=== PATIENT | female | born 1940 | race Caucasian/White ===

== ENCOUNTER 2022-02-13 06:32 | Inpatient (IN) | payer MEDICARE, SELFPAY ==
[2022-02-13] VITALS (22 sets, daily range): BP systolic 116–142; BP diastolic 64–97; PULSE 71–112; RESP 18–42; TEMP 36.3–37; O2SAT 93–100; BMI 23.3
--- NOTE | ~2022-02-13 | XR_ITS ---
EXAMINATION: XR chest 1V portable INDICATION: Shortness of breath TECHNIQUE: Portable AP chest at 0740 hours COMPARISON: None available FINDINGS: There are airspace opacities in the left midlung zone. No pleural effusion or pneumothorax. Cardiomegaly is noted. IMPRESSION: 1. Airspace opacities of the left midlung zone, consistent with atelectasis versus pneumonia. Reviewed, dictated and finalized at location A. SEAT FITTER IMPRESSION: 1. Airspace opacities of the left midlung zone, consistent with atelectasis marci caroline pneumonia.
--- NOTE | ~2022-02-13 | CT_ITS ---
EXAMINATION: CTA chest PE protocol DATE: 02/13/2022 09:50 INDICATION: Shortness of breath TECHNIQUE: Computed tomography angiography (CTA) of the chest was performed with 100 mL Omnipaque-350 intravenous contrast timed to evaluate the pulmonary arteries. Coronal maximum intensity projection 3D-reconstructions were created by the technologist. The dose-length product (DLP) was 469.62 mGy-cm. Automated exposure control and iterative reconstruction technique were employed. COMPARISON: None. FINDINGS: The pulmonary arteries are well-opacified. Respiratory motion artifact limits evaluation of subsegmental peripheral arteries. No central pulmonary embolism is identified. There is diffuse smoo th interlobular septal thickening in the lungs. There are small pleural effusions. No pneumothorax is identified. Cardiomegaly is noted. There is a 7 mm nodule in the left upper lobe. There is a 1.7 x 0 .8 cm nodule in the left lower lobe. There is a 5.7 x 2.5 cm masslike opacity of the left upper lobe. There is a 1.3 cm nodule in the left lower lobe. There is aorticopulmonary window lymphadenopathy. T here is severe thoracic and cervical spondylosis. There is a partially imaged fusiform abdominal aort ic aneurysm with a small amount of hyperattenuating material visualized which could reflect intramura l hematoma. IMPRESSION: 1. No definite pulmonary embolus identified, sensitivity limited by respiratory motion artifact. 2. Multiple left lung nodules and masslike opacity of the left upper lobe. Findings could be infectio us/inflammatory versus malignancy. Recommend CT-guided biopsy or short-term CT follow-up. 3. Aorticopulmonary window lymphadenopathy, reactive versus metastatic. 4. Partially imaged fusiform abdominal aortic aneurysm with probable intramural hematoma. Comparison with any available prior imaging is recommended. Reviewed, dictated and finalized at location A. COLOR TESTER IMPRESSION: 1. No definite pulmonary embolus identified, sensitivity limited by respiratory motion artifact. 2. Multiple left lung nodules and masslike opacity of the left upper lobe. Find ings could be infectious/inflammatory versus malignancy. Recommend CT-guided bi opsy or short-term CT follow-up. 3. Aorticopulmonary window lymphadenopathy, reactive versus metastatic. 4. Partially imaged fusiform abdominal aortic aneurysm with probable intramural hematoma. Comparison with any available prior imaging is recommended.
--- NOTE | 2022-02-13 06:44 | ECG_ITS ---
Measurements Intervals [place] Rate: 111 P: 46 [place]: 146 QRS: 89 QRSD: 132 T: 58 QT: 365 QTc: 497 Interpretive Statements SINUS TACHYCARDIA LEFT BUNDLE BRANCH BLOCK BASELINE ARTIFACT- I, II, III, AVR, AVL, AVF ABNORMAL ECG NO PREVIOUS ECG AVAILABLE FOR COMPARISON Electronically Signed On 02-13-2022 7:15:22 PARTS REMOVER by Ascencion Gonzalez D.O.
[2022-02-13] MEDS: methylPREDNISolone SOD SUCC 125 MG VIAL IV PUSH (06:52)
[2022-02-13] MEDS: IPRATROPIUM BR 0.02% INH SOLN 0.5 MG/2.5 ML VIAL INHALATION (06:52)
[2022-02-13] MEDS: ALBUTEROL SULFATE NEB 2.5 MG/3 ML INH 5 MG INHALATION (06:53)
[2022-02-13 07:01] LABS: Basophils Absolute Auto 0.1 K/mm3 (0.0-0.1); Basophils Percent Auto 0.5 % (0.2-1.2); Eosinophils Absolute Auto 0.1 K/mm3 (0-0.3); Eosinophils Percent Auto 1.5 % (0-4.4); Hematocrit 39.1 % (37.0-47.0); Hemoglobin 12.3 g/dL (12.0-15.0); Immature Granulocyte Absolute 0.05 K/mm3 (0.00-0.031); Immature Granulocyte Percent A 0.5 % (0-0.5); Lymphocytes Absolute Auto 1.82 K/mm3 (0.9-3.2); Lymphocytes Percent Auto 19.2 % (18.3-44.2); Mean Corpuscular HGB Conc 31.5 g/dl (32-36); Mean Corpuscular Hemoglobin 30.1 pg (26-34); Mean Corpuscular Volume 95.8 fl (80-100); Mean Platelet Volume 9.2 fl (7.4-10.4); Monocytes Absolute Auto 0.5 K/mm3 (0.1-0.6); Monocytes Percent Auto 5.4 % (2.6-8.5); Neutrophils Absolute Auto 6.9 K/mm3 (1.3-6.7); Neutrophils Percent Auto 72.9 % (45.5-73.1); Platelet Count Result 343 k/mm3 (150-375); Red Blood Count 4.08 M/mm3 (4.2-5.4); White Blood Count 9.5 K/mm3 (4.5-10.0)
[2022-02-13 07:04] LABS: Alveolar/Arterial O2 Gradient 88.7 mmHg; Base Excess ABG 0.2 mEq/l (+/-2.0); Fractional Inspired Oxygen 35 %; Oxygen Content ABG 18.1 %vol (16.0-22.0); Oxygen Saturation ABG 97.7 % (95.0-100.0); Oxyhemoglobin 96.7 % THb (90.0-100.0); PCO2 ABG 46.8 mmHg (35.0-45.0); PO2 ABG 106.4 mmHg (80.0-100.0); PO2 FiO2 Ratio Arterial Blood 3.04 %; Total Hemoglobin 13.2 g/dL (12.0-18.0); pH ABG 7.363 (7.350-7.450)
[2022-02-13 07:05] LABS: Device NON-INVASIVE VENT; Modified Allen's Test Pass; Site Drawn RIGHT RADIAL
[2022-02-13 07:06] LABS: Non-Invasive Expiratory Pressure 7 CMH2O; Non-Invasive Inspiratory Pressure 14 CMH2O; Non-Invasive Vent Rate 14 /MIN
[2022-02-13 07:17] LABS: Alanine Aminotransferase 17 U/L (6-35); Alkaline Phosphatase 74 U/L (38-126); Anion Gap 13 mmol/L (8-16); Aspartate Amino Transferase 40 U/L (14-36); Bilirubin,Total 0.8 mg/dL (0.2-1.3); Blood Urea Nitrogen 31 mg/dL (7-17); Calcium 8.2 mg/dL (8.4-10.2); Carbon Dioxide 25 mmol/L (22-30); Chloride 101 mmol/L (98-107); Estimated Glomerular Filt Rate 36; Glucose 201 mg/dL (65-110); Sodium 139 mmol/L (137-145)
--- NOTE | 2022-02-13 07:24 | ED.GENADULT ---
HPI - General Adult General Chief complaint: Shortness of Breath/Dyspnea <Rafael Collins MD - Last Filed: 02/18/22 12:55> Stated complaint: resp distress - 15l nrb <Rafael Collins MD - Last Filed: 02/18/22 12:55> Time Seen by Provider: 02/13/22 06:44 <Rafael Collins MD - Last Filed: 02/18/22 12:55> History of Present Illness HPI narrative: 81-year-old female presenting to the emergency department for evaluation of increased difficulty breathing. Patient states she woke up with increased shortness of breath and called EMS. On arrival EMS found the patient saturating at 84% on room air. Patient was placed on oxygen but still had difficulty maintaining her sats. Upon arrival to the emergency department patient was in respiratory distress and was placed on BiPAP. Patient did respond well to the BiPAP. Patient does have history of COPD but is not on oxygen at home. <Rafael Collins MD - Last Filed: 02/18/22 12:55> Related Data Home medications: Home Medications Medication Instructions Recorded Confirmed aspirin 81 mg chewable tablet 81 mg PO DAILY 02/13/22 02/13/22 carvedilol 25 mg tablet 25 mg PO Q12H 02/13/22 02/13/22 furosemide 20 mg tablet 20 mg PO DAILY 02/13/22 02/13/22 isosorbide mononitrate 60 mg 60 mg PO DAILY 02/13/22 02/13/22 tablet,extended release 24 hr levothyroxine 75 mcg tablet 75 mcg PO DAILY 02/13/22 02/13/22 ramipril 10 mg capsule 10 mg PO DAILY 02/13/22 02/13/22 spironolactone 25 mg tablet 12.5 mg PO DAILY 02/13/22 02/13/22 <Rafael Collins MD - Last Filed: 02/18/22 12:55> Allergies/adverse reactions: Allergies Allergy/AdvReac Type Severity Reaction Status Date / Time No Known Allergies Allergy Verified 02/13/22 08:58 <Rafael Collins MD - Last Filed: 02/18/22 12:55> Review of Systems Review of Systems: CONSTITUTIONAL: See HPI EYES: Denies visual changes, redness, or discharge. ENT: Denies rhinorrhea, congestion, sore throat, or otalgia. CARDIOVASCULAR: Denies chest pain, palpitations, or edema. RESPIRATORY: Shortness of breath GASTROINTESTINAL: Denies abdominal pain, nausea, vomiting, or diarrhea. GENITOURINARY: Denies dysuria or hematuria. SKIN: Denies rash or itching. MUSCULOSKELETAL: Denies back pain, joint pain, or myalgia. NEUROLOGIC: Denies headache, numbness, or weakness. <Rafael Collins MD - Last Filed: 02/18/22 12:55> PMFSH Past Medical History Medical History: Medical History (Updated 02/15/22 @ 08:43 by Misty Lomas APN-C) Aortic stenosis CHF (congestive heart failure) COPD (chronic obstructive pulmonary disease) Hypertension Lung nodule Mitral regurgitation <Rafael Collins MD - Last Filed: 02/18/22 12:55> Family History Family History: Family History Father Acute myocardial infarction Mother Alzheimer disease <Rafael Collins MD - Last Filed: 02/18/22 12:55> Social History Social History: Social History Smoking status: Never smoker Alcohol intake: never Substance use: never Lack of Transportation: No Lack of Food: Never True Current Housing: I Have Housing Concerned About Future Housing: No Difficulty Paying Gas/Electric Bills: No Difficulty Paying for Meds: No Currently Unemployed: No Education: High School Diploma/GED Difficulty w/ Childcare or Family Care: No Spiritual care concerns: No <Rafael Collins MD - Last Filed: 02/18/22 12:55> Exam Narrative: APPEARANCE: Well appearing, no pain, no distress, well-nourished. HEAD: normocephalic, atraumatic. EYES: PERRLA/EOMI, conjunctivae clear. NOSE: Normal no drainage NECK: Supple. No adenopathy, no masses. RESPIRATORY: Tachypnea, rhonchi in lower lung toro CARDIOVASCULAR: Tachycardia ABDOMINAL: Soft, nontender, nondistended, normal bowel sounds MUSCULOSKELETAL: Moves all extremities. Strength
[2022-02-13 07:37] LABS: Influenza A QL RT-PCR Negative (Negative); Influenza B QL RT-PCR Negative (Negative); SARS-CoV-2 RNA PCR Negative
[2022-02-13 08:54] LABS: Appearance Urine Slightly Cloudy (Clear); Bilirubin Urine Negative (Negative); Blood Urine 1+ (Negative); Color Urine Yellow (Yellow); Glucose Urine UA Negative (Negative); Ketones Urine Negative (Negative); Leukocyte Esterase Ur 3+ LEU/UL (Negative); Nitrate Urine Negative (Negative); Protein Urine 2+ mg/dL (Negative); Specific Grav Ur 1.015 (1.001-1.035); Urobilinogen Urine 0.2 mg/dL (<2.0); pH Urine 8.5 (5.0-9.0)
[2022-02-13 09:01] LABS: Bacteria Urine Trace /hpf; Mucus Urine Rare /lpf; Transitional Epi Cells Urine Rare /hpf (None Seen); WBC Clumps Urine Present /HPF; WBC Urine >75 /hpf
[2022-02-13 09:03] LABS: Add Urine Microscopic? YES
[2022-02-13 09:21] LABS: NT Pro B Type Natriuretic Pept 26600 pg/mL (5-100); Troponin I 0.412 ng/mL (0.000-0.034)
--- NOTE | 2022-02-13 09:35 | PC.NURSE ---
PT TO CT
--- NOTE | 2022-02-13 09:59 | PM.IMHP ---
H&P: [facility] History of Present Illness Date/Time: 02/13/22 09:59 Chief Complaint: sob, le edema Narrative: 81-year-old female with past medical history significant for heart failure, hypothyroidism, hypertension is presenting with shortness of breath and lower extremity edema as well as abdominal swelling concerning for heart failure exacerbation. Patient states that she takes her weight regularly and gained several lb. She called her director of retention and begin taking extra doses of Lasix to see if this would alleviate her symptoms. However, over the last few days, she noted that she did not have significant urine output like she normally does when she takes extra Lasix. Shortness of breath became worse, she developed orthopnea, lower extremity edema and abdominal distension concerning for fluid retention. Therefore, she presented to the ER for care. She denies chest pain. No recent travel or sick contacts. No nausea, vomiting or diarrhea. No fevers or chills. In the ER, she required BiPAP support to keep her pulse ox above 90%. She has since been weaned to 4 L nasal cannula. She is on room air at home. Chest x-ray showed opacities consistent with atelectasis versus pneumonia. Chest CTA was done as well that did not show definitive PE, it did show lung nodules and masslike opacity of left upper lobe concerning for malignancy as well as associated lymphadenopathy. There were also noted bilateral pleural effusions. Finally, there is a partially imaged abdominal aortic aneurysm with intramural hematoma noted. Records from her director of retention and PCP are currently being requested and are pending. Review of Systems Review of Systems: 12 point review of systems was assessed and was negative except as noted in the HPI [facility] Past Medical History Medical History (Updated 02/14/22 @ 18:09 by Swetha Mccain DO) Aortic stenosis CHF (congestive heart failure) COPD (chronic obstructive pulmonary disease) Hypertension Lung nodule Mitral regurgitation Family History Family History Father Acute myocardial infarction Mother Alzheimer disease Social History Social History Smoking status: Never smoker Alcohol intake: never Substance use: never Lack of Transportation: No Lack of Food: Never True Current Housing: I Have Housing Concerned About Future Housing: No Difficulty Paying Gas/Electric Bills: No Difficulty Paying for Meds: No Currently Unemployed: No Education: High School Diploma/GED Difficulty w/ Childcare or Family Care: No Spiritual care concerns: No Meds Home Medications and Allergies Home Medications Medication Instructions Recorded Confirmed Type aspirin 81 mg chewable tablet 81 mg PO DAILY 02/13/22 02/13/22 History carvedilol 25 mg tablet 25 mg PO Q12H 02/13/22 02/13/22 History furosemide 20 mg tablet 20 mg PO DAILY 02/13/22 02/13/22 History isosorbide mononitrate 60 mg 60 mg PO DAILY 02/13/22 02/13/22 History tablet,extended release 24 hr levothyroxine 75 mcg tablet 75 mcg PO DAILY 02/13/22 02/13/22 History ramipril 10 mg capsule 10 mg PO DAILY 02/13/22 02/13/22 History spironolactone 25 mg tablet 12.5 mg PO DAILY 02/13/22 02/13/22 History Allergies Allergy/AdvReac Type Severity Reaction Status Date / Time No Known Allergies Allergy Verified 02/13/22 08:58 Vital Signs Vital Signs - 24 hr 02/13/22 06:30 02/13/22 06:41 02/13/22 06:53 Temperature 97.4 F L Pulse Rate 111 H 105 H Respiratory Rate 41 H 42 H Blood Pressure 117/64 Pulse Oximetry 100 Oxygen Delivery Non-Rebreather Mask BiPAP Oxygen Flow Rate 15 02/13/22 06:45 02/13/22 07:11 02/13/22 08:12 Temperature Pulse Rate 93 Respiratory Rate 38 H 20 Blood Pressure Pulse Oximetry Oxygen Delivery BiPAP BiPAP Oxygen Flow Rate 02/13/22 06:45 02/13/22 06:46 02/13/22 0
[2022-02-13] MEDS: ONDANSETRON INJ 4 MG/2 ML VIAL IV PUSH (10:09)
[2022-02-13] MEDS: FUROSEMIDE INJ 40 MG/4 ML VIAL IV PUSH (10:09)
[2022-02-13 10:22] LABS: INR 1.3; Prothrombin Time 15.4 Seconds (11.1-14.7)
[2022-02-13 10:23] LABS: Partial Thromboplastin Time 27.6 SECONDS (22.3-36.8)
[2022-02-13] MEDS: ASPIRIN 325 MG TABLET PO (10:44)
[2022-02-13 13:09] LABS: Troponin I 0.496 ng/mL (0.000-0.034)
--- NOTE | 2022-02-13 13:19 | ADMGEN ---
This patient, Ayla Nolasco, was admitted to IMU Room 214-01 at 1200 . Patient/family oriented to hospital policies and general routines including ID bracelet, bed and alarms, visiting hours, pain management, procedures, bathroom and other care routines, personal items, smoking policy, room service/diet, and visiting hours. Information on how to activate the Rapid Response Team has been discussed. Patient/Family are encouraged to report perceived risks to care and to ask questions if they do not understand what they are told or what they should do.
--- NOTE | 2022-02-13 17:39 | ECG_ITS ---
Measurements Intervals [place] Rate: 90 P: 60 [place]: 171 QRS: -13 QRSD: 138 T: 99 QT: 426 QTc: 522 Interpretive Statements SINUS RHYTHM LEFT BUNDLE BRANCH BLOCK BASELINE ARTIFACT- I, II, AVR ABNORMAL ECG COMPARED TO ECG 02/13/2022 06:40:06 SINUS RHYTHM NOW PRESENT Electronically Signed On 02-14-2022 12:26:26 MANAGEMENT ADVISOR by Ascencion Gonzalez D.O.
[2022-02-13] MEDS: FUROSEMIDE INJ 40 MG/4 ML VIAL 20 MG IV PUSH (17:44)
--- NOTE | 2022-02-13 18:22 | PC.NURSE ---
Called Dr. Mccain to advise stat EKG results.
[2022-02-13] MEDS: HEPARIN SODIUM 5,000 UNITS/ML VIAL 5000 UNITS SUB-Q (20:28)
[2022-02-13] MEDS: carvediloL 25 MG TABLET PO (20:28)
[2022-02-14] VITALS (10 sets, daily range): BP systolic 100–118; BP diastolic 52–67; PULSE 70–88; RESP 18–24; TEMP 36.4–36.8; O2SAT 94–100
--- NOTE | 2022-02-14 | ECHO_ITS ---
Patient Info Name: Ayla Nolasco Age: 81 years : 1940 Gender: Female Ht: 63 in Wt: 131 lbs BSA: 1.63 m2 HR: 63 bpm BP: 118 / 64 mmHg Heart Rhythm: Sinus Rhythm Technical Quality: Fair Exam Date: 02/14/2022 9:45 AM Exam Location: [facility] Patient Status: Inpatient Admit Date: 02/13/2022 Staff Ordering Physician: Swetha Mccain DO Senior Cobol Developer: Elena Chacon RDCS Attending Provider: Swetha Mccain DO Referring Physician: Kalyn CANNON; Exam Type: CA echo doppler color flow Study Info Indications R06.02 - Shortness of breath Complete two-dimensional, color flow and Doppler transthoracic echocardiogram is performed. Summary 1. Complete two-dimensional, color flow and Doppler transthoracic echocardiogram is performed. 2. Left ventricular chamber dimension is severely enlarged. 3. Left ventricular systolic function is severely reduced, estimated at 25-30% with relative sparing of the apex with akinesis of basal inferior, basal inferolateral wall. 4. There is no increased left ventricular wall thickness. 5. Left ventricular septal wall motion is abnormal with septal motion related to bundle branch block. 6. The left ventricular diastolic function is grade III diastolic dysfunction. 7. The aortic valve is not well visualized. 8. There is mild to moderate aortic valve stenosis with a peak velocity of 202 cm/s, mean gradient of 7 mmHg, and aortic valve area of 1.5 cm2. 9. There is no aortic valve regurgitation. 10. There is moderate aortic valve calcification. 11. There is moderate to severe mitral valve regurgitation. 12. There is mild tricuspid valve regurgitation. 13. Moderate pulmonary hypertension, estimated pulmonary arterial systolic pressure is 52 mmHg. Left Ventricle Left ventricular chamber dimension is severely enlarged. Left ventricular systolic function is severely reduced, estimated at 25-30% with relative sparing of the apex with akinesis of basal inferior, basal inferolateral wall. There is no increased left ventricular wall thickness. Left ventricular septal wall motion is abnormal with septal motion related to bundle branch block. The left ventricular diastolic function is grade III diastolic dysfunction. Right Ventricle Right ventricular chamber dimension is normal. Right ventricular systolic function is normal. Left Atria Left atrial chamber dimension is mildly enlarged. Right Atria Right atrial chamber dimension is mildly enlarged. Aortic Valve The aortic valve is not well visualized. There is mild to moderate aortic valve stenosis with a peak velocity of 202 cm/s, mean gradient of 7 mmHg, and aortic valve area of 1.5 cm2. There is no aortic valve regurgitation. There is moderate aortic valve calcification. Pulmonic Valve The pulmonic valve is normal. There is mild pulmonic regurgitation. Mitral Valve The mitral valve has thickened leaflets. There is moderate to severe mitral valve regurgitation. The mitral valve annulus is moderately calcified. Tricuspid Valve The tricuspid valve leaflets are normal. There is mild tricuspid valve regurgitation. Moderate pulmonary hypertension, estimated pulmonary arterial systolic pressure is 52 mmHg. Pericardium/Pleural The pericardium appears normal. There is trivial pericardial effusion. Inferior Vena Cava Dilated inferior vena cava with no collapse upon inspiration consistent with significantly elevated right atrial pressure, 15 mmHg. Aorta
[2022-02-14 05:29] LABS: Troponin I 0.483 ng/mL (0.000-0.034)
[2022-02-14] MEDS: LEVOTHYROXINE SODIUM 75 MCG TABLET PO (06:01)
[2022-02-14] MEDS: HEPARIN SODIUM 5,000 UNITS/ML VIAL 5000 UNITS SUB-Q ×3 (06:02→20:38)
--- NOTE | 2022-02-14 09:41 | PM.CNCAR ---
Assessment and Plan Assessment and plan (1) CHF (congestive heart failure): Code(s): I50.9 - Heart failure, unspecified Status: Acute Plan This is an 81-year-old lady with ischemic heart disease known significant ischemic cardiomyopathy. She has been remarkably stable on the above medical regimen for a long time. She now has a decompensation of congestive heart failure. She has been diuresed and is feeling better. I am going to review her echocardiogram when it is done and anticipate transitioning her vaso dilator from ramipril to Entresto. A stop the ramipril today. We will follow her with you during this hospitalization and arrange follow-up in the office again. She has not been seen in a long time because of the pandemic and her fears of being exposed. Pako Ross MD [facility] History of Present Illness History of Present Illness Consult date/time: 02/14/22 09:41 Consult reason: congestive heart failure Reason For Visit: Acute Hypoxic Respiratory Failure/Pneumonia/Dehydr Narrative: This is an 81-year-old woman who has a known history of coronary artery disease and ischemic left ventricular dysfunction I am seeing at this morning at the request of the hospitalist after she was admitted over the weekend with dyspnea. The patient states she was in her usual state of health where she has some baseline shortness of breath with activity but it became much worse for 3 or 4 days before she came into the hospital. She noticed the sense of increasing abdominal girth as well she has not noticed any lower extremity edema. She is also not noticed any significant paroxysmal nocturnal dyspnea. No chest pain. She was sitting at home on Monday trying to workup possible she became very short of breath she finally decided on Monday morning to call 911 was brought to the emergency room where she was evaluated and admitted to the hospital. Her chest x-ray shows enlargement of the cardiac silhouette and some pulmonary vascular congestion. She has sinus rhythm with a left bundle branch block. Calos biomarkers are slightly elevated but flat. She has selected DNR status on her chart. In addition to the cardiac history she is known to have chronic obstructive lung disease as well. The patient cardiac-barreto has been seen by me in the past she has carries a diagnosis of significant coronary disease with total occlusion of all of her coronary arteries except for the left main and LAD. She was last seen in my office in June of 2018 with plans to see her at 6 month intervals which obviously did not occur. She stated that an appointment was canceled because of coronavirus and she had not rescheduled it. She has done remarkably well all things considered she still does see her primary care physician, Dr. Jennifer Boothe. Her medical regimen consists of aspirin, carvedilol 25 mg q.12 hours furosemide 40 mg daily isosorbide 60 mg daily, ramipril 10 mg daily and spironolactone 12.5 mg daily. Review of Systems Constitutional: Constitutional: Reports lethargy Eyes: Eyes: Reports no additional eye complaints ENT: Reports system reviewed and no additional complaints, except as documented Cardiovascular: Cardiovascular: Reports as per HPI Respiratory: Respiratory: Reports as per HPI Gastrointestinal: Gastrointestinal: Reports no additional gastrointestinal complaints Musculoskeletal: Musculoskeletal: Reports no additional musculoskeletal complaints Integumentary/Breasts: Skin/Breast: Reports system reviewed and no additional complaints, except as docu Neurologic: Reports system reviewed and no additional complaints, except as documented Endocrine: Endocrine: Reports no additional endocrine complaints Hematologic/Lymphatic: Hematologic/Lymphatic: Reports no additional hematologic/lymphatic complaints Allergic/Immunologic: Allergic/Immunologic: Reports no additional allergic/immunologic complaints [facility] Past Medical History Medical History (Revi
--- NOTE | 2022-02-14 10:25 | PM.IMPN ---
Progress Note: A&P Assessment and Plan (1) CHF (congestive heart failure): Code(s): I50.9 - Heart failure, unspecified Status: Acute (2) Acute kidney injury: Code(s): N17.9 - Acute kidney failure, unspecified Status: Acute Assessment and Plan: Worsening with diuresis, will discontinue IV diuresis in favor of oral diuresis and monitor tomorrow (3) Elevated troponin: Code(s): R77.8 - Other specified abnormalities of plasma proteins Status: Acute Assessment and Plan: Do not suspect MO, monitor, likely secondary to acute kidney injury and heart failure exacerbation (4) Abnormal urinalysis: Code(s): R82.90 - Unspecified abnormal findings in urine Status: Acute Assessment and Plan: Follow-up urine culture, hold off antibiotics for now, no symptoms of urinary tract infection noted Urine culture still pending (5) Hypertension: Code(s): I10 - Essential (primary) hypertension Status: Acute Assessment and Plan: Stable, continue home meds (6) Lung nodule: Code(s): R91.1 - Solitary pulmonary nodule Status: Acute Assessment and Plan: Uncertain clinical significance, would recommend outpatient surveillance, will attempt to get records from for old chest imaging for comparison Patient not interested in biopsy or treatment if it is possibly malignant, pulmonology is recommending outpatient reimaging in 6 weeks (7) COPD (chronic obstructive pulmonary disease): Code(s): J44.9 - Chronic obstructive pulmonary disease, unspecified Status: Acute (8) Pneumonia: Code(s): J18.9 - Pneumonia, unspecified organism Status: Acute (9) Acute combined systolic and diastolic heart failure: Code(s): I50.41 - Acute combined systolic (congestive) and diastolic (congestive) heart failure Status: Acute Assessment and Plan: Continue IV diuresis, improving Echo showed an EF of 25-30% with [id number] aortic valve stenosis, moderate to severe mitral valve regurgitation, moderate pulmonary hypertension as well as grade 3 diastolic dysfunction Appreciate cardiology consultation, discontinue ramipril in anticipation of starting Entresto after 36 hour washout EKG with a rate of 111, left bundle-branch block noted, otherwise nonacute (10) Pulmonary hypertension: Code(s): I27.20 - Pulmonary hypertension, unspecified Status: Acute Assessment and Plan: Mild to moderate, continue supplemental oxygen (11) Aortic stenosis: Code(s): I35.0 - Nonrheumatic aortic (valve) stenosis Status: Acute Assessment and Plan: Patient not interested in any kind of intervention, contributing to respiratory failure and heart failure (12) Mitral regurgitation: Code(s): I34.0 - Nonrheumatic mitral (valve) insufficiency Status: Acute Plan DVT prophylaxis with heparin GI prophylaxis not indicated Code status DNR Subjective Date/time seen: 02/14/22 10:25 Interval history: No overnight events noted. No chest pain or shortness of breath. No nausea, vomiting or diarrhea. No fevers or chills. Review of Systems Review of Systems: 12 point review of systems was assessed and was negative except as noted in the HPI Exam Narrative: General: No acute distress, alert and oriented per baseline HEENT: Atraumatic, normocephalic, mucous membranes moist CV: Regular rate and rhythm, S1, S2 Lungs: Diminished throughout with scattered crackles noted, some rhonchi noted on the left Abdomen: Somewhat soft yet distended abdomen, appears fluid-filled Extremities: Normal to inspection, trace nonpitting edema noted in bilateral lower extremities Skin: No rashes noted, no lesions or wounds seen Psych: Euthymic, normal affect Objective Data Vital Signs Vital Signs: Vital Signs - 24 hr 02/13/22 11:01 02/13/22 12:00 02/13/22 12:00 Temperature 97.7 F Pulse Rate 92 99 Respir
[2022-02-14 10:48] LABS: Basophils Percent Auto 0.1 % (0.2-1.2); Eosinophils Percent Auto 0.1 % (0-4.4); Hematocrit 38.9 % (37.0-47.0); Hemoglobin 11.9 g/dL (12.0-15.0); Immature Granulocyte Absolute 0.05 K/mm3 (0.00-0.031); Immature Granulocyte Percent A 0.6 % (0-0.5); Lymphocytes Absolute Auto 1.06 K/mm3 (0.9-3.2); Lymphocytes Percent Auto 11.7 % (18.3-44.2); Mean Corpuscular HGB Conc 30.6 g/dl (32-36); Mean Corpuscular Hemoglobin 30.1 pg (26-34); Mean Corpuscular Volume 98.2 fl (80-100); Mean Platelet Volume 9.3 fl (7.4-10.4); Monocytes Absolute Auto 0.5 K/mm3 (0.1-0.6); Monocytes Percent Auto 5.8 % (2.6-8.5); Neutrophils Absolute Auto 7.4 K/mm3 (1.3-6.7); Neutrophils Percent Auto 81.7 % (45.5-73.1); Platelet Count Result 273 k/mm3 (150-375); Red Blood Count 3.96 M/mm3 (4.2-5.4); Red Cell Distribution Width 15.9 % (11.5-14.5); White Blood Count 9.1 K/mm3 (4.5-10.0)
[2022-02-14] MEDS: FUROSEMIDE INJ 40 MG/4 ML VIAL 20 MG IV PUSH ×2 (10:51→17:21)
[2022-02-14] MEDS: SPIRONOLACTONE 12.5 MG TABLET PO (10:51)
[2022-02-14] MEDS: ISOSORBIDE MONONITRATE 60 MG TAB.ER.24H PO (10:52)
[2022-02-14] MEDS: carvediloL 25 MG TABLET PO ×2 (10:52→20:37)
[2022-02-14 10:53] LABS: Alanine Aminotransferase 19 U/L (6-35); Alkaline Phosphatase 84 U/L (38-126); Anion Gap 12 mmol/L (8-16); Aspartate Amino Transferase 32 U/L (14-36); Bilirubin,Total 0.6 mg/dL (0.2-1.3); Blood Urea Nitrogen 35 mg/dL (7-17); Calcium 8.6 mg/dL (8.4-10.2); Carbon Dioxide 30 mmol/L (22-30); Chloride 95 mmol/L (98-107); Estimated CRCL calculation 20 ml/min; Estimated Glomerular Filt Rate 29; Glucose 112 mg/dL (65-110); Potassium 4.1 mmol/L (3.4-5.0); Sodium 137 mmol/L (137-145)
[2022-02-14] MEDS: ASPIRIN 81 MG CHEWABLE TABLET PO (10:53)
--- NOTE | 2022-02-14 13:42 | PM.CNPUL ---
Assessment and Plan Assessment and plan (1) COPD (chronic obstructive pulmonary disease): Code(s): J44.9 - Chronic obstructive pulmonary disease, unspecified Status: Acute Assessment and Plan: tobacco use, 62 pack years, quit in 2007, CT scan of the chest on 02/13/2022 shows moderate to severe apical predominant centrilobular emphysema, she carries a diagnosis of COPD for several years. patient tells me she tried inhalers in the past and they never helped her so she discontinued them. She is not on home oxygen. At baseline she lives alone, does not do her shopping and can walk around the house with dyspnea on exertion approximately 20-30 feet. This CINTRON has been stable for years. Although I do not have PFTs to confirm COPD, I do believe the patient has COPD given her CT scan of the chest with severe apical predominant centrilobular emphysema. Currently she has no wheezing and I do not believe she has a COPD exacerbation. She is breathing better now with diuresis. She currently takes no home inhalers as they have not helped her in the past and she does not wish to start any inhalers at this time. (2) Lung nodule: Code(s): R91.1 - Solitary pulmonary nodule Status: Acute Assessment and Plan: I reviewed the CT scan of the chest with the radiologist. CT scan of the chest was negative for PE, smooth interlobular septal thickening consistent with pulmonary edema, small pleural effusions, cardiomegaly, 7 mm left upper lobe nodule, 1.7 x 0.8 cm left lower lobe nodule, 5.7 x 2.5 cm masslike opacity left upper lobe, 1.3 cm nodule in the left lower lobe, and left hilar mass. Etiology of the multiple nodules and masses includes cancer and pneumonia. Although patient has minimal clinical symptoms to suggest pneumonia and no leukocytosis I do recommend treating for possible pneumonia with ceftriaxone and azithromycin while she is in house. Recommend completing a course of azithromycin for 5 days followed by cefdinir 300 mg p.o. b.i.d. for a total of 10 days of antibiotics and then repeating a CT scan of the chest in 6 weeks. If this repeat CT scan in 6 weeks demonstrates continued nodules or hilar mass then I would recommend a biopsy at that time. I discussed this plan with the patient and she told me that she would not want to have a biopsy performed in the future. I asked her if I could discuss this with her children and she said that she did not want me to discuss this with her children as she did not want them to worry. She is competent and I will respect this request. The patient can follow up with her primary physician for this repeat CT scan in 6 weeks to reassess infiltrate, nodules and hilar mass. If the patient has continued infiltrates, nodules or hilar mass, I would again recommend biopsy. If patient wishes for this biopsy and assistance from pulmonary is needed, please refer her to our clinic. Will sign off. Please call with questions. (3) CHF (congestive heart failure): Code(s): I50.9 - Heart failure, unspecified Status: Acute Assessment and Plan: Agree with aggressively diuresing patient as tolerated by her cardiac and renal function per the Cardiology and hospitalist teams. History of Present Illness History of Present Illness Consult date: 02/14/22 Chief complaint: Acute Hypoxic Respiratory Failure/Pneumonia/Dehydr Narrative: 02/14/2022: This is a new pulmonary consultation for respiratory failure requiring BiPAP and a lung nodule. 81-year-old woman with a history of ischemic cardiomyopathy, hypertension, hypothyroidism, tobacco use, 62 pack years, quit in 2007, COPD for several years. patient tells me she tried inhalers in the past and they never helped her so she discontinued them. Patient presented to the emergency room on 02/13 with worsening shortness of breath, increased abdominal swelling, minimal increased leg swelling, weight gain and dizzin
--- NOTE | 2022-02-14 14:54 | PC.NURSE ---
This patient, Ayla Nolasco, was transferred to [facility] on 02/14/22 at 1425. Personal belongings sent with patient. Report given to Jaiden NICHOLAS. Appropriate documentation sent with patient.
--- NOTE | 2022-02-14 18:47 | PC.NURSE ---
This RN went to pt bedside to administer IVP meds. LAC flushed, lasix given, flushed again, azithromycin started. Site appeared WNL. This RN left room to see another pt. Received call pt was had called requesting help for pain with IVP. Arrived to pt bedside, and pt whimpering in pain. Stopped fluids, tried to aspirate site to withdraw medication. Site reddened and lump noted. IV removed, ice pack applied. Pt continuing to whimper. Called MD who said appropriate treatment given. No further action required. Pt requesting a pain pill. Nothing available on JUN. housing counselor attempting new IV. Pt screaming in pain, yelling for RN to stop. Pt screaming she can't do pain and we need to stop. Charge stopped. Encouraged pt to let auditor in charge try again, IV access gained 22 RFA. Azithromycin running with no problem. Pt states pain much improved. Will continue to monitor
[2022-02-15] VITALS (7 sets, daily range): BP systolic 90–108; BP diastolic 48–63; PULSE 66–88; RESP 16–20; TEMP 36–36.5; O2SAT 90–96
[2022-02-15 06:28] LABS: Basophils Percent Auto 0.1 % (0.2-1.2); Eosinophils Absolute Auto 0.1 K/mm3 (0-0.3); Eosinophils Percent Auto 0.9 % (0-4.4); Hemoglobin 10.9 g/dL (12.0-15.0); Immature Granulocyte Absolute 0.03 K/mm3 (0.00-0.031); Immature Granulocyte Percent A 0.4 % (0-0.5); Lymphocytes Absolute Auto 1.62 K/mm3 (0.9-3.2); Mean Corpuscular HGB Conc 31.1 g/dl (32-36); Mean Corpuscular Hemoglobin 30.4 pg (26-34); Mean Corpuscular Volume 97.8 fl (80-100); Monocytes Absolute Auto 0.6 K/mm3 (0.1-0.6); Neutrophils Absolute Auto 5.1 K/mm3 (1.3-6.7); Neutrophils Percent Auto 68.6 % (45.5-73.1); Platelet Count Result 259 k/mm3 (150-375); Red Blood Count 3.58 M/mm3 (4.2-5.4); Red Cell Distribution Width 15.9 % (11.5-14.5); White Blood Count 7.4 K/mm3 (4.5-10.0)
[2022-02-15] MEDS: HEPARIN SODIUM 5,000 UNITS/ML VIAL 5000 UNITS SUB-Q ×3 (06:39→20:59)
[2022-02-15] MEDS: LEVOTHYROXINE SODIUM 75 MCG TABLET PO (06:39)
[2022-02-15 06:45] LABS: Alanine Aminotransferase 19 U/L (6-35); Albumin Level 3.7 g/dL (3.5-5.1); Alkaline Phosphatase 69 U/L (38-126); Anion Gap 11 mmol/L (8-16); Aspartate Amino Transferase 35 U/L (14-36); Bilirubin,Total 0.5 mg/dL (0.2-1.3); Blood Urea Nitrogen 45 mg/dL (7-17); Calcium 7.9 mg/dL (8.4-10.2); Carbon Dioxide 31 mmol/L (22-30); Chloride 94 mmol/L (98-107); Estimated CRCL calculation 20 ml/min; Estimated Glomerular Filt Rate 29; Glucose 87 mg/dL (65-110); Potassium 3.9 mmol/L (3.4-5.0); Sodium 136 mmol/L (137-145)
--- NOTE | 2022-02-15 08:41 | PM.PNCARD ---
Progress Note: A&P Assessment and Plan (1) Cardiomyopathy: Code(s): I42.9 - Cardiomyopathy, unspecified Status: Acute Assessment and Plan: Echo yesterday showed severe LV dysfunction, EF 25 - 30%. Grade III diastolic dysfunction. GDMT with Entresto 24-26 b.i.d. (starting tomorrow), spironolactone 12.5mg daily, coreg 25mg p.o. b.i.d, and jardiance 10mg daily. Monitor BP and renal function (BUN 45 today from 35. Hold lasix this a.m.) (2) Aortic stenosis: Code(s): I35.0 - Nonrheumatic aortic (valve) stenosis Status: Acute Assessment and Plan: Mild to moderate with a peak velocity of 202 cm/s, mean gradient of 7 mmHg, and aortic valve area of 1.5 cm2. Outpatient surveillance. (3) Acute combined systolic and diastolic heart failure: Code(s): I50.41 - Acute combined systolic (congestive) and diastolic (congestive) heart failure Status: Acute Assessment and Plan: Improved with diuresis. Continue furosemide 20mg p.o. daily. Subjective Date/time seen: 02/15/22 08:41 Cardiology follow up for CHF She feels okay today. She's concerned that she has not had a bowel movement in 4 days. Breathing is stable. No chest pain. No swelling. Review of Systems Constitutional: Constitutional: Reports lethargy Eyes: Eyes: Reports no additional eye complaints ENT: Reports system reviewed and no additional complaints, except as documented Cardiovascular: Cardiovascular: Reports as per HPI Respiratory: Respiratory: Reports as per HPI Gastrointestinal: Gastrointestinal: Reports no additional gastrointestinal complaints Musculoskeletal: Musculoskeletal: Reports no additional musculoskeletal complaints Integumentary/Breasts: Skin/Breast: Reports system reviewed and no additional complaints, except as docu Neurologic: Reports system reviewed and no additional complaints, except as documented Endocrine: Endocrine: Reports no additional endocrine complaints Hematologic/Lymphatic: Hematologic/Lymphatic: Reports no additional hematologic/lymphatic complaints Allergic/Immunologic: Allergic/Immunologic: Reports no additional allergic/immunologic complaints Exam Const: General: comfortable and no acute distress Other: Pleasant tall thin elderly lady wearing nasal cannula oxygen comfortable cooperative no distress HENMT: Mouth: Yes moist mucous membranes Eyes: Sclera: sclerae normal Pupils: Equal, round and reactive pupils present Neck: Neck: supple and no JVD Other: Normal carotid pulses Resp: Effort & Inspection: normal respiratory effort Auscultation: clear to auscultation bilaterally Cardio: Rate: regular rate Rhythm: regular rhythm Other: No murmur GI: Auscultation: normal bowel sounds Skin: General skin exam: normal color Neuro: Cranial nerves: Yes Equal, round and reactive pupils present Other: Alert and oriented x3 Extrem: Other: Adequate perfusion, no peripheral edema Objective Data Vital Signs Vital Signs: Vital Signs - 24 hr 02/14/22 10:52 02/14/22 12:00 02/14/22 20:37 Temperature 36.4 C Pulse Rate 78 80 82 Respiratory Rate 20 Blood Pressure 100/52 L Pulse Oximetry 95 Oxygen Delivery Oxygen Flow Rate 02/14/22 22:07 02/14/22 20:00 02/15/22 05:57 Temperature 36.8 C 36.4 C L Pulse Rate 80 70 Respiratory Rate 18 20 Blood Pressure 106/59 L 103/48 L Pulse Oximetry 94 94 94 Oxygen Delivery Nasal Cannula Oxygen Flow Rate 3 02/15/22 08:25 Temperature Pulse Rate Respiratory Rate Blood Pressure Pulse Oximetry 90 Oxygen Delivery Nasal Cannula Oxygen Flow Rate 1 Intake/Output Intake/Output: Intake & Output 02/12/22 02/13/22 02/14/22 02/15/22 23:59 23:59 23:59 23:59 Intake Total 660 1700 150 Output Total 1275 1150 700 Balance -615 550 -550 Meds/Results Medications: Active Medications Generic Name Dose Route Start Last Admin Trade Name Freq PRN Reason Stop Dose Admi
[2022-02-15] MEDS: ISOSORBIDE MONONITRATE 60 MG TAB.ER.24H PO (09:05)
[2022-02-15] MEDS: ASPIRIN 81 MG CHEWABLE TABLET PO (09:05)
[2022-02-15] MEDS: SPIRONOLACTONE 12.5 MG TABLET PO (09:05)
[2022-02-15] MEDS: carvediloL 25 MG TABLET PO ×2 (09:13→21:00)
[2022-02-15] MEDS: EMPAGLIFLOZIN 10 MG TABLET PO (09:14)
--- NOTE | 2022-02-15 10:44 | PM.IMPN ---
Progress Note: A&P Assessment and Plan (1) Acute combined systolic and diastolic heart failure: Code(s): I50.41 - Acute combined systolic (congestive) and diastolic (congestive) heart failure Status: Acute Assessment and Plan: Cardiology started oral diuresis today Echo showed an EF of 25-30% with [id number] aortic valve stenosis, moderate to severe mitral valve regurgitation, moderate pulmonary hypertension as well as grade 3 diastolic dysfunction Appreciate cardiology consultation, discontinued ramipril yesterday, starting Entresto this morning EKG with a rate of 111, left bundle-branch block noted, otherwise nonacute (2) Pulmonary hypertension: Code(s): I27.20 - Pulmonary hypertension, unspecified Status: Acute Assessment and Plan: Mild to moderate, continue supplemental oxygen (3) COPD (chronic obstructive pulmonary disease): Code(s): J44.9 - Chronic obstructive pulmonary disease, unspecified Status: Acute Assessment and Plan: Stable on room air (4) Pneumonia: Code(s): J18.9 - Pneumonia, unspecified organism Status: Acute Assessment and Plan: unsure if patient has PNA, but due to multiple abnormalities on CT scan concerning for malignancy and continued resp failure, it is reasonable to treat for possible post obstructive PNA with rocephin + azithro for total 10 days per pulm recs, started 02/14/22 for 5 days azithromycin to end 02/18 and 10 days of rocephin (cefdinir at d/c) to end 02/23 (5) Lung nodule: Code(s): R91.1 - Solitary pulmonary nodule Status: Acute Assessment and Plan: Uncertain clinical significance, would recommend outpatient surveillance, will attempt to get records from for old chest imaging for comparison (6) Acute kidney injury: Code(s): N17.9 - Acute kidney failure, unspecified Status: Acute Assessment and Plan: Unknown baseline, anticipate improvement with diuresis, monitor (7) Elevated troponin: Code(s): R77.8 - Other specified abnormalities of plasma proteins Status: Acute Assessment and Plan: Do not suspect [place], monitor, likely secondary to acute kidney injury and heart failure exacerbation (8) Abnormal urinalysis: Code(s): R82.90 - Unspecified abnormal findings in urine Status: Acute Assessment and Plan: Follow-up urine culture, hold off antibiotics for now, no symptoms of urinary tract infection noted (9) Hypertension: Code(s): I10 - Essential (primary) hypertension Status: Acute Assessment and Plan: Stable, continue home meds (10) Aortic stenosis: Code(s): I35.0 - Nonrheumatic aortic (valve) stenosis Status: Acute Assessment and Plan: Patient not interested in any kind of intervention, contributing to respiratory failure and heart failure (11) Mitral regurgitation: Code(s): I34.0 - Nonrheumatic mitral (valve) insufficiency Status: Acute Plan DVT prophylaxis with heparin GI prophylaxis not indicated Code status DNR Subjective Date/time seen: 02/15/22 10:44 Interval history: No overnight events noted. No chest pain or shortness of breath. No nausea, vomiting or diarrhea. No fevers or chills. Patient states overall she feels generally weak, but much better from a shortness of breath standpoint. She was weaned to room air today. Review of Systems Review of Systems: 12 point review of systems was assessed and was negative except as noted in the HPI Exam Narrative: General: No acute distress, alert and oriented per baseline HEENT: Atraumatic, normocephalic, mucous membranes moist CV: Regular rate and rhythm, S1, S2 Lungs: Improved aeration noted, moderate air entry, somewhat diminished at bases Abdomen: Somewhat soft yet distended abdomen, appears fluid-filled Extremities: Normal to inspection, trace nonpitting edema noted in bilateral lower extremities Skin: No ra
[2022-02-16] MEDS: LOPERAMIDE HCL 2 MG CAPSULE PO ×4 (02:38→22:10)
[2022-02-16] MEDS: LEVOTHYROXINE SODIUM 75 MCG TABLET PO (05:32)
[2022-02-16] MEDS: HEPARIN SODIUM 5,000 UNITS/ML VIAL 5000 UNITS SUB-Q ×3 (05:32→20:29)
[2022-02-16 06:00] VITALS: BP 117/65; PULSE 71; RESP 18; TEMP 36.6; O2SAT 90
[2022-02-16 06:08] LABS: Basophils Percent Auto 0.7 % (0.2-1.2); Eosinophils Absolute Auto 0.1 K/mm3 (0-0.3); Eosinophils Percent Auto 2.4 % (0-4.4); Hematocrit 33.7 % (37.0-47.0); Hemoglobin 10.7 g/dL (12.0-15.0); Immature Granulocyte Absolute 0.02 K/mm3 (0.00-0.031); Immature Granulocyte Percent A 0.4 % (0-0.5); Lymphocytes Absolute Auto 1.34 K/mm3 (0.9-3.2); Lymphocytes Percent Auto 24.9 % (18.3-44.2); Mean Corpuscular HGB Conc 31.8 g/dl (32-36); Mean Corpuscular Hemoglobin 29.9 pg (26-34); Mean Corpuscular Volume 94.1 fl (80-100); Mean Platelet Volume 8.8 fl (7.4-10.4); Monocytes Absolute Auto 0.5 K/mm3 (0.1-0.6); Monocytes Percent Auto 8.3 % (2.6-8.5); Neutrophils Absolute Auto 3.4 K/mm3 (1.3-6.7); Neutrophils Percent Auto 63.3 % (45.5-73.1); Platelet Count Result 245 k/mm3 (150-375); Red Blood Count 3.58 M/mm3 (4.2-5.4); Red Cell Distribution Width 15.6 % (11.5-14.5); White Blood Count 5.4 K/mm3 (4.5-10.0)
[2022-02-16 06:18] LABS: Alanine Aminotransferase 27 U/L (6-35); Albumin Level 3.6 g/dL (3.5-5.1); Alkaline Phosphatase 74 U/L (38-126); Anion Gap 8 mmol/L (8-16); Aspartate Amino Transferase 35 U/L (14-36); Bilirubin,Total 0.5 mg/dL (0.2-1.3); Blood Urea Nitrogen 39 mg/dL (7-17); Calcium 8.1 mg/dL (8.4-10.2); Carbon Dioxide 29 mmol/L (22-30); Chloride 97 mmol/L (98-107); Estimated CRCL calculation 24 ml/min; Estimated Glomerular Filt Rate 36; Glucose 91 mg/dL (65-110); Sodium 134 mmol/L (137-145)
[2022-02-16] MEDS: EMPAGLIFLOZIN 10 MG TABLET PO (08:34)
[2022-02-16] MEDS: SPIRONOLACTONE 12.5 MG TABLET PO (08:34)
[2022-02-16] MEDS: ASPIRIN 81 MG CHEWABLE TABLET PO (08:35)
[2022-02-16] MEDS: SACUBITRIL/VALSARTAN 24-26 MG TABLET 1 TAB PO ×2 (08:35→20:29)
[2022-02-16] MEDS: ISOSORBIDE MONONITRATE 60 MG TAB.ER.24H PO (08:35)
[2022-02-16 10:07] VITALS: PULSE 68
[2022-02-16] MEDS: carvediloL 25 MG TABLET PO ×2 (10:07→20:29)
--- NOTE | 2022-02-16 12:47 | PM.PNCARD ---
Progress Note: A&P Assessment and Plan (1) Cardiomyopathy: Code(s): I42.9 - Cardiomyopathy, unspecified Status: Acute Assessment and Plan: Echo showed severe LV dysfunction, EF 25 - 30%. Grade III diastolic dysfunction. Entresto started this AM, and thus far, her blood pressure is tolerating it. Continue with Entresto. Continue with Aldactone 12.5mg Continue with Coreg 25mg. Continue with Jardiance 10mg. Lasix 20mg is currently on hold. Since we started Entresto this AM, she may not need daily scheduled Lasix, and may need it only as PRN. Would continue to hold Lasix and give only as needed. Her home medication list has ramipril -- she should be discharged with Entresto instead, and therefore, Ramipril should not be continued. We will arrange for outpatient Cardiology follow-up. Cardiology will sign off at this time. (2) Aortic stenosis: Code(s): I35.0 - Nonrheumatic aortic (valve) stenosis Status: Acute Assessment and Plan: Mild to moderate with a peak velocity of 202 cm/s, mean gradient of 7 mmHg, and aortic valve area of 1.5 cm2. Outpatient surveillance. Time Spent With Patient Time with patient: 15 - 25 minutes Subjective Date/time seen: 02/16/22 12:47 Interval history: Reason for visit: Heart failure No acute events overnight. Patient denies chest pain. Has some shortness of breath with exertion. No edema. Tolerating current meds well without issue. Review of Systems Review of Systems: 8-point ROS obtained. Negative, unless stated in HPI. Exam Const: General: comfortable and no acute distress HENMT: Mouth: Yes moist mucous membranes Eyes: General: appearance normal, both eyes and all related structures Sclera: sclerae normal Neck: Neck: supple and no JVD Resp: Effort & Inspection: normal respiratory effort Auscultation: clear to auscultation bilaterally Cardio: Rate: regular rate Rhythm: regular rhythm Other: No murmur Skin: General skin exam: normal color Neuro: Speech: normal speech Other: Alert and oriented x3 Extrem: General: no edema Psych: Mental Status: mental status grossly normal Objective Data Vital Signs Vital Signs: Vital Signs - 24 hr 02/15/22 14:00 02/15/22 14:42 02/15/22 21:00 Temperature 36.0 C L Pulse Rate 73 76 Respiratory Rate 18 Blood Pressure 90/62 L Pulse Oximetry 93 Oxygen Delivery Room Air 02/15/22 22:00 02/15/22 20:59 02/16/22 06:00 Temperature 36.5 C 36.6 C Pulse Rate 66 71 Respiratory Rate 16 18 Blood Pressure 108/63 117/65 Pulse Oximetry 90 90 Oxygen Delivery Room Air 02/16/22 10:07 02/16/22 08:35 Temperature Pulse Rate 68 Respiratory Rate Blood Pressure Pulse Oximetry Oxygen Delivery Room Air Intake/Output Intake/Output: Intake & Output 02/13/22 02/14/22 02/15/22 02/16/22 23:59 23:59 23:59 23:59 Intake Total 660 1700 1790 100 Output Total 1275 1150 700 Balance -355 654 6873 100 Meds/Results Medications: Active Medications Generic Name Dose Route Start Last Admin Trade Name Freq PRN Reason Stop Dose Admin Aspirin 81 mg 02/14/22 09:00 02/16/22 08:35 Aspirin 81 Mg Chewable Tablet PO 81 mg DAILY DIDI Administration Carvedilol 25 mg 02/13/22 21:00 02/16/22 10:07 Carvedilol 25 Mg Tablet PO 25 mg Q12HR DIDI Administration Empagliflozin 10 mg 02/15/22 09:00 02/16/22 08:34 Empagliflozin 10 Mg Tablet PO 10 mg DAILY DIDI Administration Furosemide 20 mg 02/15/22 09:00 02/15/22 09:19 Furosemide 20 Mg Tablet PO Not Given DAILY DIDI Heparin Sodium (Porcine) 5,000 units 02/13/22 22:00 02/16/22 05:32 Heparin Sodium 5,000 Units/Ml Vial SUB-Q 5,000 units Q8HR DIDI Administration Ceftriaxone Sodium/Dextrose 1 gm in 50 mls @ 100 mls/hr 02/14/22 16:00 02/15/22 16:31 Rocephin 1 Gm/D5w 50 Ml IVPB Infused Q24H DIDI Infusion Azithromycin 500 mg in 250 mls @ 250 mls/hr 02/14/22 16:00 02/01
[2022-02-16 14:00] VITALS: BP 130/50; PULSE 65; RESP 14; TEMP 36.2; O2SAT 96
--- NOTE | 2022-02-16 15:38 | PM.IMPN ---
Progress Note: A&P Assessment and Plan (1) Acute combined systolic and diastolic heart failure: Code(s): I50.41 - Acute combined systolic (congestive) and diastolic (congestive) heart failure Status: Acute Assessment and Plan: Cardiology on board. Started on oral diuresis Echo showed an EF of 25-30% with [id number] aortic valve stenosis, moderate to severe mitral valve regurgitation, moderate pulmonary hypertension as well as grade 3 diastolic dysfunction Appreciate cardiology consultation, discontinued ramipril and started on Entresto. EKG with a rate of 111, left bundle-branch block noted, otherwise nonacute (2) Pulmonary hypertension: Code(s): I27.20 - Pulmonary hypertension, unspecified Status: Acute Assessment and Plan: Mild to moderate, continue supplemental oxygen (3) COPD (chronic obstructive pulmonary disease): Code(s): J44.9 - Chronic obstructive pulmonary disease, unspecified Status: Acute Assessment and Plan: Stable on room air (4) Pneumonia: Code(s): J18.9 - Pneumonia, unspecified organism Status: Acute Assessment and Plan: unsure if patient has PNA, but due to multiple abnormalities on CT scan concerning for malignancy and continued resp failure, it is reasonable to treat for possible post obstructive PNA with rocephin + azithro for total 10 days per pulm recs, started 02/14/22 for 5 days azithromycin to end 02/18 and 10 days of rocephin (cefdinir at d/c) to end 02/23 (5) Lung nodule: Code(s): R91.1 - Solitary pulmonary nodule Status: Acute Assessment and Plan: Uncertain clinical significance, would recommend outpatient surveillance, will attempt to get records from for old chest imaging for comparison (6) Acute kidney injury: Code(s): N17.9 - Acute kidney failure, unspecified Status: Acute Assessment and Plan: Unknown baseline, anticipate improvement with diuresis, monitor Creatinine stable (7) Elevated troponin: Code(s): R77.8 - Other specified abnormalities of plasma proteins Status: Acute Assessment and Plan: Do not suspect [place], monitor, likely secondary to acute kidney injury and heart failure exacerbation (8) Abnormal urinalysis: Code(s): R82.90 - Unspecified abnormal findings in urine Status: Acute Assessment and Plan: Follow-up urine culture, Already on ceftriaxone Urine culture with Klebsiella oxytoca susceptibility to follow Blood culture x2 is negative (9) Hypertension: Code(s): I10 - Essential (primary) hypertension Status: Acute Assessment and Plan: Stable, continue home meds (10) Aortic stenosis: Code(s): I35.0 - Nonrheumatic aortic (valve) stenosis Status: Acute Assessment and Plan: Patient not interested in any kind of intervention, contributing to respiratory failure and heart failure (11) Mitral regurgitation: Code(s): I34.0 - Nonrheumatic mitral (valve) insufficiency Status: Acute Plan diarrhea: Already improving. Not watery. Will continue symptomatic treatment. If worsens may treat for C diff abdominal aortic aneurysm noted in CTA is partially imaged with probable intramural hematomaWill discuss further about repeating this scan to further evaluate this DVT prophylaxis with heparin GI prophylaxis not indicated Code status DNR Subjective Date/time seen: 02/16/22 15:38 Interval history: patient has some diarrhea yesterday 6-7 episodes but it is better today. She reports breathing is much better. No chest pain. Review of Systems Review of Systems: All systems reviewed & are unremarkable except as noted in HPI and below Exam Narrative: General: No acute distress, alert and oriented per baseline HEENT: Atraumatic, normocephalic, mucous membranes moist CV: Regular rate and rhythm, S1, S2 Lungs: Improved aeration noted, moderate air entry, somewhat dimini
[2022-02-16] MEDS: AZITHROMYCIN 250 MG TABLET 500 MG PO (15:44)
[2022-02-16 20:20] VITALS: PULSE 65; RESP 14; O2SAT 96
[2022-02-16 20:29] VITALS: PULSE 66
[2022-02-16 21:38] VITALS: BP 112/62; PULSE 65; RESP 14; TEMP 36.7; O2SAT 96
[2022-02-17] MEDS: LOPERAMIDE HCL 2 MG CAPSULE PO ×2 (01:49→23:38)
[2022-02-17] MEDS: HEPARIN SODIUM 5,000 UNITS/ML VIAL 5000 UNITS SUB-Q ×3 (05:52→22:00)
[2022-02-17] MEDS: LEVOTHYROXINE SODIUM 75 MCG TABLET PO (05:52)
[2022-02-17 06:00] VITALS: BP 126/68; PULSE 50; RESP 14; TEMP 36.3; O2SAT 92
[2022-02-17 07:23] LABS: Basophils Percent Auto 0.6 % (0.2-1.2); Eosinophils Absolute Auto 0.3 K/mm3 (0-0.3); Eosinophils Percent Auto 5.3 % (0-4.4); Hematocrit 39.1 % (37.0-47.0); Hemoglobin 12.3 g/dL (12.0-15.0); Immature Granulocyte Absolute 0.02 K/mm3 (0.00-0.031); Immature Granulocyte Percent A 0.4 % (0-0.5); Lymphocytes Absolute Auto 1.29 K/mm3 (0.9-3.2); Lymphocytes Percent Auto 25.2 % (18.3-44.2); Mean Corpuscular HGB Conc 31.5 g/dl (32-36); Mean Corpuscular Hemoglobin 30.6 pg (26-34); Mean Corpuscular Volume 97.3 fl (80-100); Monocytes Absolute Auto 0.4 K/mm3 (0.1-0.6); Monocytes Percent Auto 8.4 % (2.6-8.5); Neutrophils Absolute Auto 3.1 K/mm3 (1.3-6.7); Neutrophils Percent Auto 60.1 % (45.5-73.1); Platelet Count Result 280 k/mm3 (150-375); Red Blood Count 4.02 M/mm3 (4.2-5.4); Red Cell Distribution Width 15.8 % (11.5-14.5); White Blood Count 5.1 K/mm3 (4.5-10.0)
[2022-02-17 07:33] LABS: Alanine Aminotransferase 27 U/L (6-35); Albumin Level 3.6 g/dL (3.5-5.1); Alkaline Phosphatase 63 U/L (38-126); Anion Gap 12 mmol/L (8-16); Aspartate Amino Transferase 37 U/L (14-36); Bilirubin,Total 0.6 mg/dL (0.2-1.3); Blood Urea Nitrogen 36 mg/dL (7-17); Carbon Dioxide 29 mmol/L (22-30); Chloride 96 mmol/L (98-107); Estimated CRCL calculation 22 ml/min; Estimated Glomerular Filt Rate 33; Glucose 91 mg/dL (65-110); Magnesium 2.4 mg/dL (1.6-2.3); Potassium 4.2 mmol/L (3.4-5.0); Sodium 137 mmol/L (137-145)
[2022-02-17 08:42] VITALS: PULSE 96
[2022-02-17] MEDS: carvediloL 25 MG TABLET PO ×2 (08:42→21:59)
[2022-02-17] MEDS: SPIRONOLACTONE 12.5 MG TABLET PO (08:43)
[2022-02-17] MEDS: EMPAGLIFLOZIN 10 MG TABLET PO (08:43)
[2022-02-17] MEDS: ASPIRIN 81 MG CHEWABLE TABLET PO (08:43)
[2022-02-17] MEDS: SACUBITRIL/VALSARTAN 24-26 MG TABLET 1 TAB PO ×2 (08:43→21:59)
[2022-02-17] MEDS: ISOSORBIDE MONONITRATE 60 MG TAB.ER.24H PO (08:44)
[2022-02-17 13:57] VITALS: BP 90/46; PULSE 66; RESP 20; TEMP 36.2; O2SAT 97
[2022-02-17] MEDS: AZITHROMYCIN 250 MG TABLET 500 MG PO (15:35)
--- NOTE | 2022-02-17 15:54 | PM.IMPN ---
Progress Note: A&P Assessment and Plan (1) Acute combined systolic and diastolic heart failure: Code(s): I50.41 - Acute combined systolic (congestive) and diastolic (congestive) heart failure Status: Acute Assessment and Plan: Cardiology on board. Started on oral diuresis Echo showed an EF of 25-30% with [id number] aortic valve stenosis, moderate to severe mitral valve regurgitation, moderate pulmonary hypertension as well as grade 3 diastolic dysfunction Appreciate cardiology consultation, discontinued ramipril and started on Entresto. EKG with a rate of 111, left bundle-branch block noted, otherwise nonacute (2) Pulmonary hypertension: Code(s): I27.20 - Pulmonary hypertension, unspecified Status: Acute Assessment and Plan: Mild to moderate, continue supplemental oxygen (3) COPD (chronic obstructive pulmonary disease): Code(s): J44.9 - Chronic obstructive pulmonary disease, unspecified Status: Acute Assessment and Plan: Stable on room air (4) Pneumonia: Code(s): J18.9 - Pneumonia, unspecified organism Status: Acute Assessment and Plan: unsure if patient has PNA, but due to multiple abnormalities on CT scan concerning for malignancy and continued resp failure, it is reasonable to treat for possible post obstructive PNA with rocephin + azithro for total 10 days per pulm recs, started 02/14/22 for 5 days azithromycin to end 02/18 and 10 days of rocephin (cefdinir at d/c) to end 02/23. (5) Lung nodule: Code(s): R91.1 - Solitary pulmonary nodule Status: Acute Assessment and Plan: Uncertain clinical significance, would recommend outpatient surveillance, will attempt to get records from for old chest imaging for comparison (6) Acute kidney injury: Code(s): N17.9 - Acute kidney failure, unspecified Status: Acute Assessment and Plan: Unknown baseline, anticipate improvement with diuresis, monitor Creatinine stable (7) Elevated troponin: Code(s): R77.8 - Other specified abnormalities of plasma proteins Status: Acute Assessment and Plan: Do not suspect [place], monitor, likely secondary to acute kidney injury and heart failure exacerbation (8) Abnormal urinalysis: Code(s): R82.90 - Unspecified abnormal findings in urine Status: Acute Assessment and Plan: Follow-up urine culture, Already on ceftriaxone Urine culture with Klebsiella oxytoca susceptibility to follow sensitive to ceftraixone. will switch to omnicef Blood culture x2 is negative (9) Hypertension: Code(s): I10 - Essential (primary) hypertension Status: Acute Assessment and Plan: Stable, continue home meds (10) Aortic stenosis: Code(s): I35.0 - Nonrheumatic aortic (valve) stenosis Status: Acute Assessment and Plan: Patient not interested in any kind of intervention, contributing to respiratory failure and heart failure (11) Mitral regurgitation: Code(s): I34.0 - Nonrheumatic mitral (valve) insufficiency Status: Acute Plan diarrhea: somewhat stable. Not watery. Will continue symptomatic treatment. diarrhea continues but somewhat improved.on imodium prn abdominal aortic aneurysm noted in CTA is partially imaged with probable intramural hematoma. discussed with patient and she is aware and no further work up wanted DVT prophylaxis with heparin GI prophylaxis not indicated Code status DNR Subjective Date/time seen: 02/17/22 15:54 Interval history: patient with diarrhea whch is still going. no Review of Systems Review of Systems: All systems reviewed & are unremarkable except as noted in HPI and below Exam Narrative: General: No acute distress, alert and oriented per baseline HEENT: Atraumatic, normocephalic, mucous membranes moist CV: Regular rate and rhythm, S1, S2 Lungs: Improved aeration noted, moderate air entry, somewhat diminished at bases
[2022-02-17 20:00] VITALS: PULSE 80; RESP 16; O2SAT 96
[2022-02-17 21:59] VITALS: PULSE 64
[2022-02-17 22:00] VITALS: BP 125/72; PULSE 80; RESP 16; TEMP 36; O2SAT 96
[2022-02-18 05:00] VITALS: BP 100/52; PULSE 71; RESP 16; TEMP 35.7; O2SAT 92
[2022-02-18] MEDS: LEVOTHYROXINE SODIUM 75 MCG TABLET PO (05:42)
[2022-02-18] MEDS: HEPARIN SODIUM 5,000 UNITS/ML VIAL 5000 UNITS SUB-Q ×2 (05:42→15:45)
[2022-02-18] MEDS: LOPERAMIDE HCL 2 MG CAPSULE PO (05:50)
[2022-02-18 07:54] LABS: Magnesium 2.5 mg/dL (1.6-2.3)
[2022-02-18 07:57] LABS: Basophils Percent Auto 0.7 % (0.2-1.2); Eosinophils Absolute Auto 0.3 K/mm3 (0-0.3); Eosinophils Percent Auto 5.5 % (0-4.4); Hematocrit 37.3 % (37.0-47.0); Hemoglobin 11.8 g/dL (12.0-15.0); Immature Granulocyte Absolute 0.02 K/mm3 (0.00-0.031); Immature Granulocyte Percent A 0.3 % (0-0.5); Lymphocytes Absolute Auto 1.67 K/mm3 (0.9-3.2); Lymphocytes Percent Auto 27.7 % (18.3-44.2); Mean Corpuscular HGB Conc 31.6 g/dl (32-36); Mean Corpuscular Hemoglobin 30.6 pg (26-34); Mean Corpuscular Volume 96.6 fl (80-100); Mean Platelet Volume 9.3 fl (7.4-10.4); Monocytes Absolute Auto 0.6 K/mm3 (0.1-0.6); Monocytes Percent Auto 9.5 % (2.6-8.5); Neutrophils Absolute Auto 3.4 K/mm3 (1.3-6.7); Neutrophils Percent Auto 56.3 % (45.5-73.1); Platelet Count Result 274 k/mm3 (150-375); Red Blood Count 3.86 M/mm3 (4.2-5.4); Red Cell Distribution Width 16.1 % (11.5-14.5)
[2022-02-18 08:00] LABS: Alanine Aminotransferase 25 U/L (6-35); Albumin Level 3.6 g/dL (3.5-5.1); Alkaline Phosphatase 69 U/L (38-126); Anion Gap 11 mmol/L (8-16); Aspartate Amino Transferase 28 U/L (14-36); Bilirubin,Total 0.5 mg/dL (0.2-1.3); Blood Urea Nitrogen 39 mg/dL (7-17); Calcium 8.4 mg/dL (8.4-10.2); Carbon Dioxide 30 mmol/L (22-30); Chloride 97 mmol/L (98-107); Estimated CRCL calculation 21 ml/min; Estimated Glomerular Filt Rate 31; Glucose 87 mg/dL (65-110); Potassium 3.5 mmol/L (3.4-5.0); Sodium 138 mmol/L (137-145)
[2022-02-18 09:31] VITALS: BP 119/50
[2022-02-18 09:32] VITALS: PULSE 70
[2022-02-18] MEDS: SPIRONOLACTONE 12.5 MG TABLET PO (09:32)
[2022-02-18] MEDS: EMPAGLIFLOZIN 10 MG TABLET PO (09:32)
[2022-02-18] MEDS: CEFDINIR 300 MG CAPSULE PO (09:32)
[2022-02-18] MEDS: ASPIRIN 81 MG CHEWABLE TABLET PO (09:32)
[2022-02-18] MEDS: carvediloL 25 MG TABLET PO (09:32)
[2022-02-18] MEDS: SACUBITRIL/VALSARTAN 24-26 MG TABLET 1 TAB PO (09:32)
[2022-02-18] MEDS: ISOSORBIDE MONONITRATE 60 MG TAB.ER.24H PO (09:32)
[2022-02-18] MEDS: AZITHROMYCIN 250 MG TABLET 500 MG PO (13:56)
[2022-02-18 14:00] VITALS: BP 98/51; PULSE 65; RESP 18; TEMP 36.3; O2SAT 94
--- NOTE | 2022-02-18 16:41 | PM.IMPN ---
Progress Note: A&P Assessment and Plan (1) Acute combined systolic and diastolic heart failure: Code(s): I50.41 - Acute combined systolic (congestive) and diastolic (congestive) heart failure Status: Acute Assessment and Plan: Cardiology on board. Started on oral diuresis Echo showed an EF of 25-30% with [id number] aortic valve stenosis, moderate to severe mitral valve regurgitation, moderate pulmonary hypertension as well as grade 3 diastolic dysfunction Appreciate cardiology consultation, discontinued ramipril and started on Entresto. EKG with a rate of 111, left bundle-branch block noted, otherwise nonacute (2) Pulmonary hypertension: Code(s): I27.20 - Pulmonary hypertension, unspecified Status: Acute Assessment and Plan: Mild to moderate, continue supplemental oxygen (3) COPD (chronic obstructive pulmonary disease): Code(s): J44.9 - Chronic obstructive pulmonary disease, unspecified Status: Acute Assessment and Plan: Stable on room air (4) Pneumonia: Code(s): J18.9 - Pneumonia, unspecified organism Status: Acute Assessment and Plan: unsure if patient has PNA, but due to multiple abnormalities on CT scan concerning for malignancy and continued resp failure, it is reasonable to treat for possible post obstructive PNA with rocephin + azithro for total 10 days per pulm recs, started 02/14/22 for 5 days azithromycin to end 02/18 and 10 days of rocephin (cefdinir at d/c) to end 02/23. (5) Lung nodule: Code(s): R91.1 - Solitary pulmonary nodule Status: Acute Assessment and Plan: Uncertain clinical significance, would recommend outpatient surveillance, will attempt to get records from for old chest imaging for comparison (6) Acute kidney injury: Code(s): N17.9 - Acute kidney failure, unspecified Status: Acute Assessment and Plan: Unknown baseline, anticipate improvement with diuresis, monitor Creatinine stable (7) Elevated troponin: Code(s): R77.8 - Other specified abnormalities of plasma proteins Status: Acute Assessment and Plan: Do not suspect MD, monitor, likely secondary to acute kidney injury and heart failure exacerbation (8) Abnormal urinalysis: Code(s): R82.90 - Unspecified abnormal findings in urine Status: Acute Assessment and Plan: Follow-up urine culture, Already on ceftriaxone Urine culture with Klebsiella oxytoca susceptibility to follow sensitive to ceftraixone. will switch to omnicef Blood culture x2 is negative (9) Hypertension: Code(s): I10 - Essential (primary) hypertension Status: Acute Assessment and Plan: Stable, continue home meds (10) Aortic stenosis: Code(s): I35.0 - Nonrheumatic aortic (valve) stenosis Status: Acute Assessment and Plan: Patient not interested in any kind of intervention, contributing to respiratory failure and heart failure (11) Mitral regurgitation: Code(s): I34.0 - Nonrheumatic mitral (valve) insufficiency Status: Acute Plan #Diarrhea: somewhat stable. Not watery. Will continue symptomatic treatment. diarrhea continues but somewhat improved.on imodium prn abdominal aortic aneurysm noted in CTA is partially imaged with probable intramural hematoma. discussed with patient and she is aware and no further work up wanted DVT prophylaxis with heparin GI prophylaxis not indicated Code status DNR Subjective Date/time seen: 02/18/22 16:41 Interval history: no overnight events. no nausea, vomiting. she worked with therapy today.s he is opposed to going to rehabiltation. dairea is setting down. Review of Systems Review of Systems: All systems reviewed & are unremarkable except as noted in HPI and below Exam Narrative: General: No acute distress, alert and oriented per baseline HEENT: Atraumatic, normocephalic, mucous membranes moist CV: Regular rate and rhyt
--- NOTE | 2022-02-18 17:38 | PM.DS ---
DS: Admitting Diagnosis Discharge Date 02/18/2022 Admitting Diagnosis shortness of breath DS: Discharge Diagnosis Discharge Diagnosis (1) Acute combined systolic and diastolic heart failure: Code(s): I50.41 - Acute combined systolic (congestive) and diastolic (congestive) heart failure Status: Acute (2) Pulmonary hypertension: Code(s): I27.20 - Pulmonary hypertension, unspecified Status: Acute (3) COPD (chronic obstructive pulmonary disease): Code(s): J44.9 - Chronic obstructive pulmonary disease, unspecified Status: Acute (4) Pneumonia: Code(s): J18.9 - Pneumonia, unspecified organism Status: Acute (5) Lung nodule: Code(s): R91.1 - Solitary pulmonary nodule Status: Acute (6) Acute kidney injury: Code(s): N17.9 - Acute kidney failure, unspecified Status: Acute (7) Elevated troponin: Code(s): R77.8 - Other specified abnormalities of plasma proteins Status: Acute (8) Abnormal urinalysis: Code(s): R82.90 - Unspecified abnormal findings in urine Status: Acute (9) Hypertension: Code(s): I10 - Essential (primary) hypertension Status: Acute (10) Aortic stenosis: Code(s): I35.0 - Nonrheumatic aortic (valve) stenosis Status: Acute (11) Mitral regurgitation: Code(s): I34.0 - Nonrheumatic mitral (valve) insufficiency Status: Acute DS: Summary Hospital Course Hospital Course: # Acute combined systolic and diastolic heart failure: Cardiology? on board.? Started on oral diuresis Echo showed an EF of 25-30% with [id number] aortic valve stenosis, moderate to severe mitral valve regurgitation, moderate pulmonary hypertension as well as grade 3 diastolic dysfunction Appreciate cardiology consultation, discontinued ramipril and started on Entresto. she is already on Coreg. Also started on Jardiance. EKG with a rate of 111, left bundle-branch block noted, otherwise nonacute # pulmonary hypertension: Mild to moderate, continue supplemental oxygen Which was tapered off by the time of discharge # COPD: Stable on room air . Follow-up with Pulmonary. # pneumonia: unsure if patient has PNA, but due to multiple abnormalities on CT scan concerning for malignancy and continued resp failure, it is reasonable to treat for possible post obstructive PNA with rocephin + azithro for total 10 days per pulm recs, started 02/14/22 for 5 days azithromycin to end 02/18 and 10 days of rocephin (cefdinir at d/c) to end 02/23. Finished as azithromycin during the hospital stay. Cefdinir at discharge for 5 more days. # lung nodules: Uncertain clinical significance, would recommend outpatient surveillance Needs repeat CT chest in 6 weeks to reassess infiltrate nodules and hilar mass. # acute kidney injury: Unknown baseline, anticipate improvement with diuresis, monitor Creatinine stable # elevated troponin: Do not suspect VA, monitor, likely secondary to acute kidney injury and heart failure exacerbation # UTI: Follow-up urine culture,? Already on ceftriaxone Urine culture with Klebsiella oxytoca susceptibility to follow sensitive to ceftraixone. will switch to omnicef Blood culture x2 is negative # hypertension: Stable, continue home meds # aortic stenosis: Patient not interested in any kind of intervention, contributing to respiratory failure and heart failure # mitral regurgitation: # Diarrhea:? somewhat stable. Not watery.? Will continue symptomatic treatment.? diarrhea continues but somewhat improved.on imodium prn # abdominal aortic aneurysm noted in CTA is partially imaged with probable intramural hematoma. discussed with patient and she is aware and no further work up wanted # DVT prophylaxis with heparin #Code status DNR Time Spent with Patient Time attestation: Total time spent providing and/or coordinating discharge services: 45 minutes Exam Narrative: General: No acute d
== END 2022-02-18 18:01 | disposition home health service (06) | DRG 291 ==
LOC: ANHED 10:46 → ANHIMU 11:26 → ANH3MEDSUR 02-14 14:42
PROVIDERS: Emergency Medicine; Admitting Provider Student in an Organized Health Care Education/Training Program; Emergency Provider Emergency Medicine; PCP Family Medicine; Visit Provider Internal Medicine
DX: I11.0 Hypertensive heart disease with heart failure (principal); I50.43 Acute on chronic combined systolic (congestive) and diastolic (congestive) heart failure; J18.9 Pneumonia, unspecified organism; N17.9 Acute kidney failure, unspecified; N39.0 Urinary tract infection, site not specified; R91.1 Solitary pulmonary nodule; J44.9 Chronic obstructive pulmonary disease, unspecified; I27.20 Pulmonary hypertension, unspecified; I35.0 Nonrheumatic aortic (valve) stenosis; I34.0 Nonrheumatic mitral (valve) insufficiency; R19.7 Diarrhea, unspecified; I71.40 Abdominal aortic aneurysm, without rupture, unspecified; Z66 Do not resuscitate; I42.9 Cardiomyopathy, unspecified; Z87.891 Personal history of nicotine dependence; Z20.822 Contact with and (suspected) exposure to COVID-19; Z82.49 Family history of ischemic heart disease and other diseases of the circulatory system; Z79.82 Long term (current) use of aspirin; Z79.899 Other long term (current) drug therapy
CPT/HCPCS: 36415; 36600; 51701; 71045; 71275; 80053; 81001; 82805; 83735; 83880; 84484; 85025; 85610; 85730; 87040; 87077; 87086; 87088; 87186; 87636; 93005; 93306; 94002; 94640; 96374; 97116; 97161; 97165; 97530; 97535; 99285; A9270; J0456; J0696; J1644; J1940; J2405; J2930; Q9967

== ENCOUNTER 2022-02-25 09:46 | Outpatient (NON) | payer MEDICARE, SELFPAY ==
[2022-02-25 10:37] LABS: Alanine Aminotransferase 22 U/L (6-35); Albumin Level 3.7 g/dL (3.5-5.1); Alkaline Phosphatase 68 U/L (38-126); Anion Gap 8 mmol/L (8-16); Aspartate Amino Transferase 28 U/L (14-36); Bilirubin,Total 0.4 mg/dL (0.2-1.3); Blood Urea Nitrogen 22 mg/dL (7-17); Calcium 8.1 mg/dL (8.4-10.2); Carbon Dioxide 25 mmol/L (22-30); Chloride 103 mmol/L (98-107); Estimated Glomerular Filt Rate 33; Glucose 90 mg/dL (65-110); Potassium 4.8 mmol/L (3.4-5.0); Sodium 136 mmol/L (137-145)
[2022-02-25 10:57] LABS: Basophils Percent Auto 0.5 % (0.2-1.2); Eosinophils Absolute Auto 0.3 K/mm3 (0-0.3); Eosinophils Percent Auto 4.6 % (0-4.4); Hematocrit 35.1 % (37.0-47.0); Hemoglobin 10.9 g/dL (12.0-15.0); Immature Granulocyte Absolute 0.01 K/mm3 (0.00-0.031); Immature Granulocyte Percent A 0.2 % (0-0.5); Lymphocytes Absolute Auto 1.41 K/mm3 (0.9-3.2); Lymphocytes Percent Auto 25.8 % (18.3-44.2); Mean Corpuscular HGB Conc 31.1 g/dl (32-36); Mean Corpuscular Hemoglobin 30.7 pg (26-34); Mean Corpuscular Volume 98.9 fl (80-100); Mean Platelet Volume 9.3 fl (7.4-10.4); Monocytes Absolute Auto 0.4 K/mm3 (0.1-0.6); Monocytes Percent Auto 7.1 % (2.6-8.5); Neutrophils Absolute Auto 3.4 K/mm3 (1.3-6.7); Neutrophils Percent Auto 61.8 % (45.5-73.1); Platelet Count Result 233 k/mm3 (150-375); Red Blood Count 3.55 M/mm3 (4.2-5.4); Red Cell Distribution Width 16.6 % (11.5-14.5); White Blood Count 5.5 K/mm3 (4.5-10.0)
== END 2022-02-25 09:47 | disposition home or self-care (01) ==
PROVIDERS: PCP Family Medicine; Visit Provider Internal Medicine
DX: I42.9 Cardiomyopathy, unspecified (principal)
CPT/HCPCS: 80053; 85025

== ENCOUNTER 2022-03-10 11:53 | Outpatient (NON) | payer MEDICARE, SELFPAY ==
[2022-03-10 12:33] LABS: Anion Gap 6 mmol/L (8-16); Blood Urea Nitrogen 31 mg/dL (7-17); Calcium 7.7 mg/dL (8.4-10.2); Carbon Dioxide 33 mmol/L (22-30); Chloride 95 mmol/L (98-107); Estimated Glomerular Filt Rate 27; Glucose 87 mg/dL (65-110); Potassium 3.8 mmol/L (3.4-5.0); Sodium 134 mmol/L (137-145)
== END 2022-03-10 11:54 | disposition home or self-care (01) ==
PROVIDERS: PCP Family Medicine; Visit Provider Family Medicine
DX: I50.1 Left ventricular failure, unspecified (principal)
CPT/HCPCS: 80048

== ENCOUNTER 2022-03-17 10:46 | Outpatient (NON) | payer MEDICARE, SELFPAY ==
[2022-03-17 11:35] LABS: Anion Gap 7 mmol/L (8-16); Blood Urea Nitrogen 27 mg/dL (7-17); Calcium 8.3 mg/dL (8.4-10.2); Carbon Dioxide 30 mmol/L (22-30); Chloride 100 mmol/L (98-107); Estimated Glomerular Filt Rate 31; Glucose 107 mg/dL (65-110); Potassium 4.3 mmol/L (3.4-5.0); Sodium 137 mmol/L (137-145)
== END 2022-03-17 10:47 | disposition home or self-care (01) ==
LOC: HOME HLTH 10:49
PROVIDERS: PCP Family Medicine; Visit Provider Family Medicine
DX: N18.30 Chronic kidney disease, stage 3 unspecified (principal)
CPT/HCPCS: 80048

== ENCOUNTER 2022-04-14 10:29 | Outpatient (NON) | payer MEDICARE, SELFPAY ==
[2022-04-14 11:00] LABS: Anion Gap 5 mmol/L (8-16); Blood Urea Nitrogen 31 mg/dL (7-17); Calcium 8.3 mg/dL (8.4-10.2); Carbon Dioxide 31 mmol/L (22-30); Chloride 99 mmol/L (98-107); Estimated Glomerular Filt Rate 36; Glucose 104 mg/dL (65-110); Sodium 135 mmol/L (137-145)
== END 2022-04-14 10:30 | disposition home or self-care (01) ==
PROVIDERS: PCP Family Medicine; Visit Provider Family Medicine
DX: J44.0 Chronic obstructive pulmonary disease with (acute) lower respiratory infection (principal); I11.0 Hypertensive heart disease with heart failure; J18.9 Pneumonia, unspecified organism; I50.41 Acute combined systolic (congestive) and diastolic (congestive) heart failure; N18.30 Chronic kidney disease, stage 3 unspecified; I50.9 Heart failure, unspecified
CPT/HCPCS: 80048

== ENCOUNTER 2022-04-24 06:08 | Inpatient (IN) | payer MEDICARE, SELFPAY ==
[2022-04-24] VITALS (13 sets, daily range): BP systolic 109–142; BP diastolic 58–86; PULSE 60–78; RESP 16–31; TEMP 36.4–36.6; O2SAT 92–100
--- NOTE | ~2022-04-24 | CT_ITS ---
EXAMINATION: CT brain wo con DATE: 04/24/2022 14:53 INDICATION: vertigo . TECHNIQUE: Computed tomography (CT) of the head was performed without intravenous contrast. The mA wa s adjusted according to patient size. Iterative reconstruction technique was employed. The dose-lengt h product was 605.33 mGy-cm. COMPARISON: 04/22/2008. FINDINGS: No acute intracranial hemorrhage or extra-axial fluid collection. No hydrocephalus, mass, or herniation. No acute ischemic infarct. Unremarkable dural venous sinus attenuation. No acute osseous abnormality. Air-fluid level in the left maxillary sinus, the remaining aerated spaces are clear. Mild atrophy and chronic white matter change. Severe atherosclerotic intracranial calcification. Righ t lens replacement. IMPRESSION: No acute intracranial process. Left maxillary sinus findings may reflect acute sinusitis in the appro priate clinical context. Reviewed, dictated and finalized at location K. IC HOUSING MANAGER IMPRESSION: No acute intracranial process. Left maxillary sinus findings may reflect acute sinusitis in the appropriate clinical context.
--- NOTE | ~2022-04-24 | XR_ITS ---
EXAMINATION: XR chest 2V DATE: 04/24/2022 08:31 INDICATION: Shortness of breath. TECHNIQUE: Frontal and lateral views of the chest were obtained. COMPARISON: Chest single view 02/13/2022, chest CT 02/13/2022 FINDINGS: The lungs are hyperexpanded with lucencies, consistent with emphysema. Rickie B-lines are n oted, consistent mild pulmonary edema. There are airspace opacities in right lower lung zone and left mid and lower lung zones. There is a small right pleural effusion. No pneumothorax. Cardiomegaly is noted. IMPRESSION: 1. Mild pulmonary edema. 2. Emphysema. 3. Worsened airspace opacities in right lower lung zone and left mid and lower lung zones, consistent with atelectasis versus pneumonia versus metastatic disease. Consider chest CT. 4. Small right pleural effusion. Reviewed, dictated and finalized at location A. OR TALENT ACQUISITION SPECIALIST IMPRESSION: 1. Mild pulmonary edema. 2. Emphysema. 3. Worsened airspace opacities in right lower lung zone and left mid and lower lung zones, consistent with atelectasis versus pneumonia versus metastatic dise ase. Consider chest CT. 4. Small right pleural effusion.
--- NOTE | ~2022-04-24 | CT_ITS ---
EXAMINATION:CT diagnostic chest wo con DATE: 04/24/2022 09:06 INDICATION: Infiltrate. TECHNIQUE: Computed tomography (CT) of the chest was performed without intravenous contrast. Automate d exposure control and iterative reconstruction technique were employed. The dose-length product (DLP ) was 191.95 mGy-cm. COMPARISON: Chest CT 02/13/2022, CTA abdomen and pelvis 02/03/14 FINDINGS: There is moderate emphysema. There is septal thickening in the lungs, consistent with mild pulmonary edema. Again seen is a 4.3 x 3.2 cm mass in lingula. Again seen is a 13 mm nodule in left l ower lobe. Again seen is an 8 mm nodule in left upper lobe. Again seen is a 12 mm nodule in left lowe r lobe. Again seen is a 7 mm nodule in right lower lobe. There is mild atelectasis bilaterally, worst in the dependent right lower lobe. There are small pleural effusions. Cardiomegaly is noted. There a re coronary artery calcifications. There are calcifications aortic valve. There is a small pericardia l effusion. There is mild mediastinal lymphadenopathy. Partially visualized is an abdominal aortic an eurysm. Partially visualized is a 4.7 cm cyst in left kidney. There is a 10 mm stone in left kidney. There is severe cervical, thoracic, and lumbar spondylosis. IMPRESSION: 1. Persistent lingular mass, scattered pulmonary nodules, and mild mediastinal lymphadenopathy, consi stent with metastatic disease. 2. Mild pulmonary edema small pleural effusions. 3. Moderate emphysema. 4.Partially visualized abdominal aortic aneurysm that measured 5.2 cm on 02/03/2014. CT abdomen and an d pelvis is recommended. 5. Small pericardial effusion. Reviewed, dictated and finalized at location A. OLE MANAGER IMPRESSION: 1. Persistent lingular mass, scattered pulmonary nodules, and mild mediastinal lymphadenopathy, consistent with metastatic disease. 2. Mild pulmonary edema small pleural effusions. 3. Moderate emphysema. 4.Partially visualized abdominal aortic aneurysm that measured 5.[address] abdomen and and pelvis is recommended. 5. Small pericardial effusion.
--- NOTE | ~2022-04-24 | XR_ITS ---
EXAMINATION: XR chest 1V portable DATE: 04/27/2022 10:30 INDICATION: Shortness of breath TECHNIQUE: frontal view of the chest was obtained. COMPARISON: Chest radiograph and CT dated 04/24/2022 FINDINGS: Skinfold projects over the lateral right mid to lower lung zone. Slight improvement in airspace opaci ties in the left mid and right lower lung zones. Pulmonary vascular congestion and mild increased int erstitial pattern consistent with mild pulmonary edema. Small right pleural effusion. No definitive l eft pleural effusion. No pneumothorax. Cardiomegaly. IMPRESSION: 1. Likely congestive heart failure with cardiomegaly, pulmonary vascular congestion and mild pulmonar y edema. 2. Improvement in opacities in the left mid and right lower lung zones which could represent atelecta sis or pneumonia. 3. Small right pleural effusion. Reviewed, dictated and finalized at location B. URCE SPECIALIST TEACHER IMPRESSION: 1. Likely congestive heart failure with cardiomegaly, pulmonary vascular conges tion and mild pulmonary edema. 2. Improvement in opacities in the left mid and right lower lung zones which co uld represent atelectasis or pneumonia. 3. Small right pleural effusion.
--- NOTE | ~2022-04-24 | XR_ITS ---
Portable chest x-ray Comparison: 04/27/2022 Clinical History: Shortness of breath Findings: There is stable discoid left midlung atelectasis or scarring. Suggestion of minimal pulmon abdirashid edema pattern. Cardiomediastinal silhouette is stable. Bones and soft tissues are unremarkable. Impression: Probable minimal pulmonary edema pattern with stable left midlung scarring or atelectasis. Reviewed, dictated and finalized at [facility]. DAMAGE APPRAISER Impression: Probable minimal pulmonary edema pattern with stable left midlung scarring or a telectasis.
--- NOTE | 2022-04-24 06:26 | ECG_ITS ---
Measurements Intervals [place] Rate: 71 P: 39 OH: 166 QRS: 260 QRSD: 129 T: 58 QT: 443 QTc: 482 Interpretive Statements SINUS RHYTHM LEFT BUNDLE BRANCH BLOCK BASELINE ARTIFACT- I, II, AVR, AVL, AVF ABNORMAL ECG COMPARED TO ECG 02/13/2022 17:50:29 Electronically Signed On 04-24-2022 7:27:08 MIDDLE SCHOOL PRINCIPAL by Ascencion Gonzalez D.O.
--- NOTE | 2022-04-24 07:22 | PC.NURSE ---
assumed care of pt from shift commander rn. pt no visible distress, resting on stretcher. med student at bedside.
--- NOTE | 2022-04-24 08:05 | PC.NURSE ---
pt assisted from bed to bedside commode. no dizziness or feelings of room spinning noted by pt. assisted back to bed without incident. pt stated that was exhausting . spo2 checked - 76%. placed pt on 2L o2 via nc. spo2 - 97%. notified
[2022-04-24 08:19] LABS: Basophils Percent Auto 0.5 % (0.2-1.2); Eosinophils Absolute Auto 0.2 K/mm3 (0-0.3); Eosinophils Percent Auto 3.7 % (0-4.4); Hematocrit 35.8 % (37.0-47.0); Immature Granulocyte Absolute 0.04 K/mm3 (0.00-0.031); Immature Granulocyte Percent A 0.7 % (0-0.5); Lymphocytes Absolute Auto 1.23 K/mm3 (0.9-3.2); Mean Corpuscular HGB Conc 30.7 g/dl (32-36); Mean Corpuscular Hemoglobin 30.5 pg (26-34); Mean Corpuscular Volume 99.2 fl (80-100); Mean Platelet Volume 9.7 fl (7.4-10.4); Monocytes Absolute Auto 0.4 K/mm3 (0.1-0.6); Monocytes Percent Auto 6.4 % (2.6-8.5); Neutrophils Absolute Auto 4.2 K/mm3 (1.3-6.7); Neutrophils Percent Auto 68.7 % (45.5-73.1); Platelet Count Result 171 k/mm3 (150-375); Red Blood Count 3.61 M/mm3 (4.2-5.4); Red Cell Distribution Width 15.2 % (11.5-14.5); White Blood Count 6.1 K/mm3 (4.5-10.0)
[2022-04-24 08:26] LABS: Alanine Aminotransferase 23 U/L (6-35); Albumin Level 3.5 g/dL (3.5-5.1); Alkaline Phosphatase 63 U/L (38-126); Anion Gap 6 mmol/L (8-16); Aspartate Amino Transferase 27 U/L (14-36); Bilirubin,Total 0.5 mg/dL (0.2-1.3); Blood Urea Nitrogen 32 mg/dL (7-17); Calcium 8.2 mg/dL (8.4-10.2); Carbon Dioxide 29 mmol/L (22-30); Chloride 104 mmol/L (98-107); Estimated CRCL calculation 24 ml/min; Estimated Glomerular Filt Rate 36; Glucose 104 mg/dL (65-110); Potassium 4.8 mmol/L (3.4-5.0); Sodium 139 mmol/L (137-145)
[2022-04-24] MEDS: ONDANSETRON INJ 4 MG/2 ML VIAL IV PUSH (08:33)
[2022-04-24] MEDS: MECLIZINE HCL 25 MG TABLET PO (08:33)
[2022-04-24 08:58] LABS: NT Pro B Type Natriuretic Pept 27100 pg/mL (19.9-100)
[2022-04-24 09:24] LABS: Influenza A QL RT-PCR Negative (Negative); Influenza B QL RT-PCR Negative (Negative); SARS-CoV-2 RNA PCR Negative
[2022-04-24] MEDS: FUROSEMIDE INJ 40 MG/4 ML VIAL IV PUSH ×2 (11:27→20:44)
--- NOTE | 2022-04-24 11:33 | ED.GENADULT ---
HPI - General Adult General Chief complaint: Dizziness Stated complaint: VERTIGO/NAUSEA Time Seen by Provider: 04/24/22 06:55 History of Present Illness HPI narrative: Patient is an 81-year-old female who presents ER with dizziness and shortness of breath. Dizziness sudden onset after looking down today at home. Spinning in nature. Associate with nausea and vomiting. She sat down to try to improve her symptoms and called 911. No weakness in arm or leg. No slurred speech or expressive aphasia. Patient reports she has had vertigo in the past. Patient also reports that she has shortness of breath. Chronic. Worse with any sort of exertion. No chest pain or pressure. Has history of heart failure and aortic stenosis. Reports compliance with her home Lasix. Related Data Home Medications Medication Instructions Recorded Confirmed aspirin 81 mg chewable tablet 81 mg PO DAILY 02/13/22 02/13/22 carvedilol 25 mg tablet 25 mg PO Q12H 02/13/22 02/13/22 isosorbide mononitrate 60 mg 60 mg PO DAILY 02/13/22 02/13/22 tablet,extended release 24 hr levothyroxine 75 mcg tablet 75 mcg PO DAILY 02/13/22 02/13/22 spironolactone 25 mg tablet 12.5 mg PO DAILY 02/13/22 02/13/22 Allergies Allergy/AdvReac Type Severity Reaction Status Date / Time adhesive tape Allergy Mild Unknown Verified 04/24/22 06:18 codeine Allergy Unknown Unknown Verified 04/24/22 06:18 Review of Systems Review of Systems: All systems reviewed & are unremarkable except as noted in HPI and below Constitutional: Constitutional: Denies chills, Denies fatigue and Denies fever(s) ENT: Reports vertigo, Denies nasal congestion and Denies sore throat Cardiovascular: Cardiovascular: Denies chest pain, Denies rapid heart rate and Denies radiating jaw, neck or arm pain Respiratory: Respiratory: Denies cough, Reports dyspnea and Denies wheezing Gastrointestinal: Gastrointestinal: Denies abdominal pain, Denies nausea and Denies vomiting Neurologic: Denies syncope, Denies headache(s), Denies focal weakness and Denies numbness PMF Past Medical History Medical History (Updated 04/24/22 @ 11:34 by Don Ordoñez MD) Abdominal aortic aneurysm Anxiety Aortic stenosis CAD (coronary artery disease) CHF (congestive heart failure) CHF (congestive heart failure) Chronic renal insufficiency, stage III (moderate) COPD (chronic obstructive pulmonary disease) Gout Heart attack Hypertension Hypertension Hypertension Hypothyroidism Lung nodule Mitral regurgitation Family History Family History Father Acute myocardial infarction Mother Alzheimer disease Social History Social History (System 03/16/22 @ 08:59 by Fany Saunders) Smoking packs per day: 1 Smoking cigarettes per day: 20.0 Years smoked: 45 Smoking pack-years: 45.00 Smoking status: Never smoker Second hand tobacco smoke exposure: No Smoking end date: 04/03/04 Alcohol intake: never Substance use: never Substance use type: does not use Lack of Transportation: No Lack of Food: Never True Current Housing: I Have Housing Concerned About Future Housing: No Difficulty Paying Gas/Electric Bills: No Difficulty Paying for Meds: No Currently Unemployed: No Education: High School Diploma/GED Difficulty w/ Childcare or Family Care: No Living arrangements: with family Gender identity (if verbalized by the patient): Female Spiritual care concerns: No Agree to blood products: Yes Exam Narrative: GENERAL: Well-appearing, well-nourished, and in no acute distress. HEAD: Normocephalic, atraumatic. EYES: PERRL and EOMI. no nystagmus. ENT: Mucous membranes moist. TMs normal bilaterally. CHEST: Clear to auscultation. No respiratory distress. HEART: Regular rate and rhythm. Murmur consistent with aortic stenosis heard. Normal peripheral pulses. ABDOMEN: Soft, nontender, nondistended. EXTREMITIES: Normal range of
--- NOTE | 2022-04-24 13:05 | PM.IMHP ---
H&P: HPI History of Present Illness Date/Time: 04/24/22 13:05 Chief Complaint: Dizziness. Narrative: This is a very pleasant 81-year-old female with coronary artery disease, ischemic cardiomyopathy, heart failure with reduced ejection fraction (EF 25 to 30% in February 2022), hypertension, chronic obstructive pulmonary disease, and other comorbidities who presented to the ED via EMS from home for evaluation of dizziness. Patient provides the following history. Each morning she gets up and goes to the restroom and heads to the scale as she is meticulous and monitoring her weights. It is quite common for her to get short of breath from bending over and getting this scale out in order to weigh (the last couple of weeks her weights have fluctuated and she has had some days where she gains 3 lb overnight). It sometimes takes her couple of minutes to catch her breath however today she was more winded than normal. She states she was probably breathing rapid and shallow and during that episode she got extremely dizzy. She goes on to say that she felt herself spinning and she felt as though the room was spinning and ?I could not tell up from down.? She had significant nausea with that but no episodes of emesis. These feelings are similar to those she has experienced with vertigo in the past. She made her way into the kitchen to take her medications and back into the bathroom at which time the vertigo intensified and she was unable to get herself up so she called 911. She was given a dose of meclizine and Zofran in the emergency department and her symptoms have improved. She still has some mild vertigo when getting up to the commode and when looking up or turning her head to either side, but not nearly as significant. She denies visual changes, facial droop, difficulty speaking and swallowing, focal weakness, paresthesias, sensations of racing heart, chest and pleuritic pain, and current shortness of breath. She also denies fever, chills, sweats, cold and flu symptoms, nausea, vomiting, diarrhea, and dysuria. She has not noticed any significant lower extremity edema. She was afebrile on arrival to the ED. Vital signs have been stable though she is mildly hypoxic and is currently on 2 L. Labs are stable. ProBNP 25657. EKG showed chronic LBBB is unchanged. Brain CT showed no acute intracranial process (left maxillary sinus findings may reflect acute sinusitis though she has no symptoms of such). Chest CT showed a persistent lingular mass with scattered pulmonary nodules and mild mediastinal lymphadenopathy consistent with metastatic disease of which the patient is very well aware and she has chosen not to do a further workup. Mild pulmonary edema and small pleural effusions were also noted. She is being admitted in this setting for treatment of CHF exacerbation. Review of Systems Review of Systems: Twelve systems were reviewed and are negative except for as per HPI. [facility] Past Medical History Medical History (Updated 04/24/22 @ 13:14 by Ivanna Crane PA-C) Abdominal aortic aneurysm Anxiety Aortic stenosis Chronic kidney disease, stage 3 Chronic obstructive pulmonary disease Coronary artery disease Total occlusion of all coronary arteries except for left main and LAD. Gout Heart failure with reduced ejection fraction Hypertension Hypothyroidism Ischemic cardiomyopathy Lung nodule Pulmonary nodules noted on several CT scans over the years consistent with metastatic disease (unknown primary). Patient declines workup. Mitral regurgitation Obstructive sleep apnea Surgical History Surgical History History of cardiac catheterization Family History Family History Father Acute myocardial infarction Mother Alzheimer disease Father Cerebrovascular accident Family history of diabetes mellitus in first degree relative Family history of heart
[2022-04-24] MEDS: MECLIZINE HCL 12.5 MG TABLET PO ×2 (14:15→20:44)
[2022-04-25] VITALS (15 sets, daily range): BP systolic 93–127; BP diastolic 50–63; PULSE 61–79; RESP 16–21; TEMP 36.2–37.1; O2SAT 93–100
[2022-04-25] MEDS: carvediloL 25 MG TABLET PO ×3 (00:27→21:22)
[2022-04-25 05:27] LABS: Anion Gap 3 mmol/L (8-16); Blood Urea Nitrogen 34 mg/dL (7-17); Calcium 7.9 mg/dL (8.4-10.2); Carbon Dioxide 36 mmol/L (22-30); Chloride 96 mmol/L (98-107); Estimated CRCL calculation 19 ml/min; Estimated Glomerular Filt Rate 27; Glucose 88 mg/dL (65-110); Magnesium 2.4 mg/dL (1.6-2.3); Potassium 4.5 mmol/L (3.4-5.0); Sodium 135 mmol/L (137-145)
[2022-04-25] MEDS: LEVOTHYROXINE SODIUM 75 MCG TABLET PO (05:49)
[2022-04-25] MEDS: ramipriL 5 MG CAPSULE 10 MG BY MOUTH (08:43)
[2022-04-25] MEDS: ISOSORBIDE MONONITRATE 60 MG TAB.ER.24H PO (08:43)
[2022-04-25] MEDS: MECLIZINE HCL 12.5 MG TABLET PO ×4 (08:43→21:22)
[2022-04-25] MEDS: ASPIRIN 81 MG CHEWABLE TABLET PO (08:43)
[2022-04-25] MEDS: ENOXAPARIN 30 MG/0.3 ML SYRINGE SUB-Q (08:44)
[2022-04-25] MEDS: SPIRONOLACTONE 12.5 MG TABLET PO (08:44)
[2022-04-25] MEDS: FUROSEMIDE INJ 40 MG/4 ML VIAL 20 MG IV PUSH (08:44)
--- NOTE | 2022-04-25 11:47 | PM.IMPN ---
Progress Note: A&P Assessment and Plan (1) Acute on chronic systolic heart failure: Code(s): I50.23 - Acute on chronic systolic (congestive) heart failure Status: Acute Assessment and Plan: Continue iv lasix, labs reviwed cxr reviwed (2) Vertigo: Code(s): R42 - Dizziness and giddiness Status: Acute Assessment and Plan: Her vertigo has improved significantly after receiving meclizine and Zofran. She still has some positional vertigo and this is likely benign vertigo. Brain CT did not show any acute findings. Continue meclizine p.r.n. and initiate fall precautions. If ongoing symptoms brain MRI may be prudent. Brain CT shows findings of possible acute sinusitis on the left though she has no symptoms of such. (3) Hypoxia: Code(s): R09.02 - Hypoxemia Status: Acute Assessment and Plan: Her hypoxia is likely due to underlying CHF exacerbation and emphysema. Pulmonary embolism seems less likely by history. Wean oxygen as tolerated. Regarding the pulmonary nodules, she is well aware that these may represent metastatic disease and she is not interested in pursuing a workup. pt needing 2 liters of oxygen try wean off oxygen (4) Lung nodule: Code(s): R91.1 - Solitary pulmonary nodule Status: Acute Assessment and Plan: see above (5) Chronic kidney disease, stage 3: Code(s): N18.30 - Chronic kidney disease, stage 3 unspecified Status: Acute Assessment and Plan: Continue to monitor kidney function (6) Hypertension: Code(s): I10 - Essential (primary) hypertension Status: Acute Assessment and Plan: BP chronic and stable Plan Subjective Date/time seen: 04/25/22 11:47 This is a very pleasant 81-year-old female with coronary artery disease, ischemic cardiomyopathy, heart failure with reduced ejection fraction (EF 25 to 30% in February 2022), hypertension, chronic obstructive pulmonary disease, and other comorbidities who presented to the ED via EMS from home for evaluation of dizziness. Pt admitted for chf dizziness and hypoxemia Pt feels better since admission Passing urine well bp is slightly low today on iv lasix Pt is comfortable on 2 liters of oxygen does not usually wear oxygen at home Review of Systems Review of Systems: Mild sob no cough or fever Objective Data Vital Signs Vital Signs: Vital Signs - 24 hr 04/24/22 13:15 04/24/22 14:02 04/24/22 15:35 Temperature Pulse Rate 70 63 65 Respiratory Rate 18 16 16 Blood Pressure 109/63 114/63 113/62 Pulse Oximetry 97 100 100 Oxygen Delivery Oxygen Flow Rate 04/24/22 17:16 04/24/22 17:46 04/24/22 16:50 Temperature 36.6 C Pulse Rate 74 78 Respiratory Rate 16 16 Blood Pressure 125/58 L 109/79 Pulse Oximetry 100 98 99 Oxygen Delivery Nasal Cannula Oxygen Flow Rate 3 04/24/22 21:51 04/25/22 00:27 04/25/22 01:43 Temperature 36.4 C L 36.6 C Pulse Rate 67 66 66 Respiratory Rate 20 21 H Blood Pressure 118/64 127/62 Pulse Oximetry 99 100 Oxygen Delivery Oxygen Flow Rate 04/24/22 20:30 04/25/22 06:00 04/25/22 04:00 Temperature 36.8 C 36.8 C Pulse Rate 70 70 Respiratory Rate 21 H 21 H Blood Pressure 113/58 L 113/58 L Pulse Oximetry 100 100 100 Oxygen Delivery Nasal Cannula Oxygen Flow Rate 3 04/25/22 06:35 04/25/22 06:40 04/25/22 06:46 Temperature 36.8 C 36.7 C 36.7 C Pulse Rate 70 71 69 Respiratory Rate 21 H 21 H 21 H Blood Pressure 113/58 L 105/63 100/56 L Pulse Oximetry 100 100 100 Oxygen Delivery Oxygen Flow Rate 04/25/22 08:50 04/25/22 11:36 04/25/22 11:37 Temperature 37.1 C Pulse Rate 79 Respiratory Rate 18 Blood Pressure 98/55 L 93/53 L Pulse Oximetry 93 93 Oxygen Delivery Nasal Cannula Oxygen Flow Rate 2 04/25/22 11:37 Temperature Pulse Rate Respiratory Rate Blood Pressure 95/57 L Pulse Oximetry Oxygen Delivery Oxygen Flow Rate
[2022-04-25 12:47] LABS: Anion Gap 5 mmol/L (8-16); Blood Urea Nitrogen 36 mg/dL (7-17); Calcium 7.8 mg/dL (8.4-10.2); Carbon Dioxide 36 mmol/L (22-30); Chloride 97 mmol/L (98-107); Estimated CRCL calculation 19 ml/min; Estimated Glomerular Filt Rate 27; Glucose 94 mg/dL (65-110); Potassium 4.1 mmol/L (3.4-5.0); Sodium 138 mmol/L (137-145)
[2022-04-26] VITALS (19 sets, daily range): BP systolic 92–157; BP diastolic 45–104; PULSE 64–78; RESP 16–22; TEMP 36.4–36.8; O2SAT 93–100
[2022-04-26] MEDS: LEVOTHYROXINE SODIUM 75 MCG TABLET PO (05:36)
[2022-04-26] MEDS: SPIRONOLACTONE 12.5 MG TABLET PO (08:33)
[2022-04-26] MEDS: ENOXAPARIN 30 MG/0.3 ML SYRINGE SUB-Q (08:33)
[2022-04-26] MEDS: ISOSORBIDE MONONITRATE 60 MG TAB.ER.24H PO (08:33)
[2022-04-26] MEDS: ASPIRIN 81 MG CHEWABLE TABLET PO (08:33)
[2022-04-26] MEDS: MECLIZINE HCL 12.5 MG TABLET PO ×4 (08:33→20:57)
[2022-04-26] MEDS: ramipriL 5 MG CAPSULE 10 MG BY MOUTH (08:33)
[2022-04-26] MEDS: carvediloL 25 MG TABLET PO ×2 (08:33→20:56)
[2022-04-26] MEDS: FUROSEMIDE INJ 40 MG/4 ML VIAL 20 MG IV PUSH (09:55)
--- NOTE | 2022-04-26 10:45 | PM.IMPN ---
Progress Note: A&P Assessment and Plan (1) Acute on chronic systolic heart failure: Code(s): I50.23 - Acute on chronic systolic (congestive) heart failure Status: Acute Assessment and Plan: Transition to oral lasix, creat is 1.8 Watch kidney function Continue 2 liters of oxygen try to wean off Daily BMP rpt BNP BNP 32736 on admission (2) Vertigo: Code(s): R42 - Dizziness and giddiness Status: Acute Assessment and Plan: Her vertigo has improved significantly after receiving meclizine and Zofran. She still has some positional vertigo and this is likely benign vertigo. Continue meclizine p.r.n. Brain CT shows findings of possible acute sinusitis on the left. (3) Hypoxia: Code(s): R09.02 - Hypoxemia Status: Acute Assessment and Plan: Her hypoxia is likely due to underlying CHF exacerbation and emphysema. Pt needing 2 liters of oxygen try wean off oxygen, will benefit from ambulatory walk study on dc. pt had cxr and ct chest on admission CT chest showing - 1. Persistent lingular mass, scattered pulmonary nodules, and mild mediastinal lymphadenopathy, consistent with metastatic disease. 2. Mild pulmonary edema small pleural effusions. 3. Moderate emphysema. 4.Partially visualized abdominal aortic aneurysm that measured 5.2 cm on 02/03/2014. CT abdomen and and pelvis is recommended. 5. Small pericardial effusion. (4) Lung nodule: Code(s): R91.1 - Solitary pulmonary nodule Status: Acute Assessment and Plan: Regarding the pulmonary nodules, may represent metastatic disease and she is not interested in pursuing a workup. (5) Chronic kidney disease, stage 3: Code(s): N18.30 - Chronic kidney disease, stage 3 unspecified Status: Acute Assessment and Plan: Continue to monitor kidney function (6) Hypertension: Code(s): I10 - Essential (primary) hypertension Status: Acute Assessment and Plan: BP chronic and stable BP is 118/58 Plan Subjective Date/time seen: 04/26/22 10:45 This is a very pleasant 81-year-old female with coronary artery disease, ischemic cardiomyopathy, heart failure with reduced ejection fraction (EF 25 to 30% in February 2022), hypertension, chronic obstructive pulmonary disease, and other comorbidities who presented to the ED via EMS from home for evaluation of dizziness. Pt admitted for chf excerbation, dizziness and hypoxemia Pt feels better since admission Passing urine well bp is better today pt is on iv lasix Pt is comfortable on 2 liters of oxygen does not usually wear oxygen at home Pt is recovering try to wean off oxygen today Review of Systems Review of Systems: SOB Exam Narrative: Patient is comfortable on 2 liters of oxygen HEENT: eyes are clear and none icteric LUNGS: bl crackles at lung bases ABD: not distended Lower extremities: no edema SKIN: nonjaundiced Neuro: grossly intact. Objective Data Vital Signs Vital Signs: Vital Signs - 24 hr 04/25/22 11:36 04/25/22 11:37 04/25/22 11:37 Temperature 37.1 C Pulse Rate 79 Respiratory Rate 18 Blood Pressure 98/55 L 93/53 L 95/57 L Pulse Oximetry 93 Oxygen Delivery Oxygen Flow Rate 04/25/22 14:07 04/25/22 18:27 04/25/22 21:22 Temperature 36.2 C L 36.3 C L Pulse Rate 61 70 71 Respiratory Rate 16 16 Blood Pressure 99/50 L 101/51 L Pulse Oximetry 98 97 Oxygen Delivery Oxygen Flow Rate 04/25/22 22:42 04/25/22 21:05 04/26/22 01:00 Temperature 36.7 C 36.8 C Pulse Rate 71 70 Respiratory Rate 18 16 Blood Pressure 124/54 L 108/59 L Pulse Oximetry 97 97 93 Oxygen Delivery Nasal Cannula Oxygen Flow Rate 2 04/26/22 01:00 04/26/22 01:05 04/26/22 01:15 Temperature 36.8 C 36.6 C 36.7 C Pulse Rate 70 75 78 Respiratory Rate 16 16 16 Blood Pressure 108/59 L 111/65 129/77 Pulse Oximetry 93 94 94 Oxygen Delivery Oxygen Flow Rate 04/26/22 05:48 04/26/22 0
[2022-04-26 12:02] LABS: Glucose Point of Care 99 mg/dl (65-105)
[2022-04-26] MEDS: ACETAMINOPHEN 325 MG TABLET 650 MG PO ×2 (17:04→23:20)
[2022-04-26] MEDS: FUROSEMIDE 40 MG TABLET PO (17:05)
[2022-04-27] VITALS (13 sets, daily range): BP systolic 114–131; BP diastolic 55–81; PULSE 68–94; RESP 20–24; TEMP 36.3–36.9; O2SAT 90–99
[2022-04-27] MEDS: ACETAMINOPHEN 325 MG TABLET 650 MG PO (04:06)
[2022-04-27] MEDS: LEVOTHYROXINE SODIUM 75 MCG TABLET PO (05:49)
--- NOTE | 2022-04-27 07:51 | PM.IMPN ---
Progress Note: A&P Assessment and Plan (1) Acute on chronic systolic heart failure: Code(s): I50.23 - Acute on chronic systolic (congestive) heart failure Status: Acute Assessment and Plan: Transition to oral lasix, creat is 1.8 Watch kidney function Continue 2 liters of oxygen try to wean off Daily BMP rpt BNP BNP 60034 on admission Will recheck chest x-ray today (2) Vertigo: Code(s): R42 - Dizziness and giddiness Status: Acute Assessment and Plan: Her vertigo has improved significantly after receiving meclizine and Zofran. She still has some positional vertigo and this is likely benign vertigo. Continue meclizine p.r.n. Brain CT shows findings of possible acute sinusitis on the left. (3) Hypoxia: Code(s): R09.02 - Hypoxemia Status: Acute Assessment and Plan: Her hypoxia is likely due to underlying CHF exacerbation and emphysema. Pt needing 2 liters of oxygen try wean off oxygen, will need walk test at discharge pt had cxr and ct chest on admission CT chest showing - 1. Persistent lingular mass, scattered pulmonary nodules, and mild mediastinal lymphadenopathy, consistent with metastatic disease. 2. Mild pulmonary edema small pleural effusions. 3. Moderate emphysema. 4.Partially visualized abdominal aortic aneurysm that measured 5.2 cm on 02/03/2014. CT abdomen and and pelvis is recommended. 5. Small pericardial effusion. (4) Lung nodule: Code(s): R91.1 - Solitary pulmonary nodule Status: Acute Assessment and Plan: Regarding the pulmonary nodules, may represent metastatic disease and she is not interested in pursuing a workup. (5) Chronic kidney disease, stage 3: Code(s): N18.30 - Chronic kidney disease, stage 3 unspecified Status: Acute Assessment and Plan: Baseline creatinine between 1.4-1.8 Continue to monitor with diuresis (6) Hypertension: Code(s): I10 - Essential (primary) hypertension Status: Acute Assessment and Plan: BP chronic and stable Plan Partially visualized abdominal aortic aneurysm measuring 5.2 cm on 02/03/2014 Pulmonary edema Persistent lingular mass with scattered pulmonary nodules with mild mediastinal lymphadenopathy consistent with metastatic disease. Small pericardial effusion Coronary artery disease Ischemic cardiomyopathy Heart failure with reduced ejection fraction EF 25 30% February 2022 COPD Hypertension Chronic left bundle-branch Elevated proBNP Acute hypoxic respiratory failure needing oxygen supplementation Pulmonary nodules decline workup in the past Hypothyroidism Gout CKD stage 3 Mild to moderate aortic stenosis Abdominal aortic aneurysm DVT prophylaxis Lovenox Subjective Date/time seen: 04/27/22 07:51 Interval history: Feels okay. Dizziness has resolved. Shortness of breath still persists with exertion. Denies any chest pain. Review of Systems Review of Systems: All systems reviewed & are unremarkable except as noted in HPI and below Exam Narrative: Patient is comfortable lying in bed not in acute distress HEENT: eyes are clear and none icteric LUNGS: bl crackles at lung bases ABD: not distended soft nontender Lower extremities: no edema cyanosis or clubbing SKIN: nonjaundiced Neuro: grossly intact. Alert and oriented x3 Objective Data Vital Signs Vital Signs: Vital Signs - 24 hr 04/26/22 08:00 04/26/22 08:05 04/26/22 08:10 Temperature 98.1 F Pulse Rate 64 72 78 Respiratory Rate 16 16 18 Blood Pressure 107/47 L 113/53 L 118/58 L Pulse Oximetry 100 100 100 Oxygen Delivery Oxygen Flow Rate 04/26/22 08:30 04/26/22 12:00 04/26/22 12:42 Temperature 98.2 F 98.2 F Pulse Rate 73 69 Respiratory Rate 16 16 Blood Pressure 157/72 H 92/47 L Pulse Oximetry 93 96 100 Oxygen Delivery Nasal Cannula Oxygen Flow Rate 2 04/26/22 16:00 04/26/22 19:18 04/26/22 19:18 Temperature 98.0 F 97.8 F Pulse
[2022-04-27 08:00] LABS: Alanine Aminotransferase 17 U/L (6-35); Albumin Level 3.6 g/dL (3.5-5.1); Alkaline Phosphatase 60 U/L (38-126); Anion Gap 3 mmol/L (8-16); Aspartate Amino Transferase 22 U/L (14-36); Bilirubin,Total 0.6 mg/dL (0.2-1.3); Blood Urea Nitrogen 40 mg/dL (7-17); Calcium 7.9 mg/dL (8.4-10.2); Carbon Dioxide 38 mmol/L (22-30); Chloride 94 mmol/L (98-107); Estimated CRCL calculation 19 ml/min; Estimated Glomerular Filt Rate 27; Glucose 89 mg/dL (65-110); Magnesium 2.3 mg/dL (1.6-2.3); Potassium 4.3 mmol/L (3.4-5.0); Sodium 135 mmol/L (137-145)
[2022-04-27 08:02] LABS: Basophils Percent Auto 0.6 % (0.2-1.2); Eosinophils Absolute Auto 0.3 K/mm3 (0-0.3); Eosinophils Percent Auto 5.5 % (0-4.4); Hematocrit 34.6 % (37.0-47.0); Hemoglobin 10.2 g/dL (12.0-15.0); Immature Granulocyte Absolute 0.02 K/mm3 (0.00-0.031); Immature Granulocyte Percent A 0.4 % (0-0.5); Lymphocytes Absolute Auto 1.03 K/mm3 (0.9-3.2); Lymphocytes Percent Auto 21.6 % (18.3-44.2); Mean Corpuscular HGB Conc 29.5 g/dl (32-36); Mean Corpuscular Hemoglobin 29.7 pg (26-34); Mean Corpuscular Volume 100.9 fl (80-100); Mean Platelet Volume 9.7 fl (7.4-10.4); Monocytes Absolute Auto 0.5 K/mm3 (0.1-0.6); Monocytes Percent Auto 9.5 % (2.6-8.5); Neutrophils Percent Auto 62.4 % (45.5-73.1); Platelet Count Result 161 k/mm3 (150-375); Red Blood Count 3.43 M/mm3 (4.2-5.4); Red Cell Distribution Width 15.1 % (11.5-14.5); White Blood Count 4.8 K/mm3 (4.5-10.0)
[2022-04-27 08:12] LABS: Anion Gap 4 mmol/L (8-16); Blood Urea Nitrogen 40 mg/dL (7-17); Calcium 7.9 mg/dL (8.4-10.2); Carbon Dioxide 38 mmol/L (22-30); Chloride 95 mmol/L (98-107); Estimated CRCL calculation 19 ml/min; Estimated Glomerular Filt Rate 27; Glucose 89 mg/dL (65-110); Potassium 4.4 mmol/L (3.4-5.0); Sodium 137 mmol/L (137-145)
[2022-04-27 08:19] LABS: NT Pro B Type Natriuretic Pept 19000 pg/mL (19.9-100)
[2022-04-27 08:25] LABS: Hypochromasia 1+ (NORMAL); Platelet Estimate Adequate (Adequate); Schistocytes None Seen (NORMAL); Stomatocytes 1+ (NORMAL)
[2022-04-27] MEDS: ramipriL 5 MG CAPSULE 10 MG BY MOUTH (08:27)
[2022-04-27] MEDS: MECLIZINE HCL 12.5 MG TABLET PO ×4 (08:27→21:05)
[2022-04-27] MEDS: FUROSEMIDE 40 MG TABLET PO ×2 (08:27→16:59)
[2022-04-27] MEDS: carvediloL 25 MG TABLET PO ×2 (08:27→21:04)
[2022-04-27] MEDS: ENOXAPARIN 30 MG/0.3 ML SYRINGE SUB-Q (08:27)
[2022-04-27] MEDS: SPIRONOLACTONE 12.5 MG TABLET PO (08:30)
[2022-04-27] MEDS: ASPIRIN 81 MG CHEWABLE TABLET PO (08:30)
[2022-04-27] MEDS: ISOSORBIDE MONONITRATE 60 MG TAB.ER.24H PO (08:30)
[2022-04-27] MEDS: FUROSEMIDE INJ 40 MG/4 ML VIAL IV PUSH (13:25)
[2022-04-28] VITALS (14 sets, daily range): BP systolic 90–122; BP diastolic 43–67; PULSE 69–86; RESP 16–20; TEMP 36.4–36.8; O2SAT 91–97
[2022-04-28 05:33] LABS: Basophils Percent Auto 0.6 % (0.2-1.2); Eosinophils Absolute Auto 0.3 K/mm3 (0-0.3); Eosinophils Percent Auto 5.2 % (0-4.4); Hematocrit 36.1 % (37.0-47.0); Hemoglobin 11.1 g/dL (12.0-15.0); Immature Granulocyte Absolute 0.02 K/mm3 (0.00-0.031); Immature Granulocyte Percent A 0.3 % (0-0.5); Lymphocytes Absolute Auto 1.41 K/mm3 (0.9-3.2); Lymphocytes Percent Auto 22.4 % (18.3-44.2); Mean Corpuscular HGB Conc 30.7 g/dl (32-36); Mean Corpuscular Hemoglobin 29.8 pg (26-34); Mean Corpuscular Volume 96.8 fl (80-100); Monocytes Absolute Auto 0.6 K/mm3 (0.1-0.6); Neutrophils Absolute Auto 3.9 K/mm3 (1.3-6.7); Neutrophils Percent Auto 62.5 % (45.5-73.1); Platelet Count Result 201 k/mm3 (150-375); Red Blood Count 3.73 M/mm3 (4.2-5.4); Red Cell Distribution Width 14.8 % (11.5-14.5); White Blood Count 6.3 K/mm3 (4.5-10.0)
[2022-04-28 05:45] LABS: Alanine Aminotransferase 17 U/L (6-35); Albumin Level 3.6 g/dL (3.5-5.1); Alkaline Phosphatase 67 U/L (38-126); Anion Gap 5 mmol/L (8-16); Aspartate Amino Transferase 22 U/L (14-36); Bilirubin,Total 0.8 mg/dL (0.2-1.3); Blood Urea Nitrogen 44 mg/dL (7-17); Calcium 8.4 mg/dL (8.4-10.2); Carbon Dioxide 39 mmol/L (22-30); Chloride 94 mmol/L (98-107); Estimated CRCL calculation 21 ml/min; Estimated Glomerular Filt Rate 31; Glucose 104 mg/dL (65-110); Magnesium 2.4 mg/dL (1.6-2.3); Sodium 138 mmol/L (137-145)
[2022-04-28] MEDS: LEVOTHYROXINE SODIUM 75 MCG TABLET PO (06:26)
--- NOTE | 2022-04-28 09:00 | PCPTNOTE ---
Patient refused treatment this session. Patient did not really give reason why, just stated not right now. Educated patient on the importance and benefits of therapy and getting up to chair. Patient continued to refuse.
[2022-04-28] MEDS: carvediloL 25 MG TABLET PO ×2 (09:14→20:01)
[2022-04-28] MEDS: MECLIZINE HCL 12.5 MG TABLET PO ×4 (09:19→20:01)
[2022-04-28] MEDS: ISOSORBIDE MONONITRATE 60 MG TAB.ER.24H PO (09:19)
[2022-04-28] MEDS: ENOXAPARIN 30 MG/0.3 ML SYRINGE SUB-Q (09:19)
[2022-04-28] MEDS: SPIRONOLACTONE 12.5 MG TABLET PO (09:20)
[2022-04-28] MEDS: ramipriL 5 MG CAPSULE 10 MG BY MOUTH (09:20)
[2022-04-28] MEDS: ASPIRIN 81 MG CHEWABLE TABLET PO (09:20)
[2022-04-28] MEDS: FUROSEMIDE 40 MG TABLET PO ×2 (09:38→16:37)
--- NOTE | 2022-04-28 13:56 | PC.NURSE ---
On 04/28/22, the student, [Blanca Mortensen], provided care and completed [facility] on this patient. I have reviewed the student's documentation and agree with the findings.
--- NOTE | 2022-04-28 14:30 | PCPTNOTE ---
Attempted to see patient for therapy, however patient refused. FL[employer] ENGINEER HELICOPTER and GODINEZ discussed with patient the importance and benefits of therapy, patient continued to refuse. RN aware.
--- NOTE | 2022-04-28 14:32 | PCOTNOTE ---
Patient refused treatment this session. Patient was approached by OT and PT this afternoon. Patient refusing to participate in services. Patient was asked her plan for discharge, she stated, I'm going home . Therapists explained to her that home can not be an option, unless she hires someone for 24 hour assistance, she would not qualify for a rehab facility if she will not participate. Patient's resident caregiver also verbalized they have spoke about all options and her family will be making decisions and talking with her.
--- NOTE | 2022-04-28 17:04 | PM.IMPN ---
Progress Note: A&P Assessment and Plan (1) Acute on chronic systolic heart failure: Code(s): I50.23 - Acute on chronic systolic (congestive) heart failure Status: Acute Assessment and Plan: Transition to oral lasix, creat is 1.8 Watch kidney function Continue 2 liters of oxygen try to wean off Daily BMP rpt BNP BNP 97520 on admission Recheck chest x-ray with persistent congestion/pulmonary edema diuresis p.r.n. with IV Lasix (2) Vertigo: Code(s): R42 - Dizziness and giddiness Status: Acute Assessment and Plan: Her vertigo has improved significantly after receiving meclizine and Zofran. She still has some positional vertigo and this is likely benign vertigo. Continue meclizine p.r.n. Brain CT shows findings of possible acute sinusitis on the left. (3) Hypoxia: Code(s): R09.02 - Hypoxemia Status: Acute Assessment and Plan: Her hypoxia is likely due to underlying CHF exacerbation and emphysema. Pt needing 2 liters of oxygen try wean off oxygen, will need walk test at discharge pt had cxr and ct chest on admission CT chest showing - 1. Persistent lingular mass, scattered pulmonary nodules, and mild mediastinal lymphadenopathy, consistent with metastatic disease. 2. Mild pulmonary edema small pleural effusions. 3. Moderate emphysema. 4.Partially visualized abdominal aortic aneurysm that measured 5.2 cm on 02/03/2014. CT abdomen and and pelvis is recommended. 5. Small pericardial effusion. (4) Lung nodule: Code(s): R91.1 - Solitary pulmonary nodule Status: Acute Assessment and Plan: Regarding the pulmonary nodules, may represent metastatic disease and she is not interested in pursuing a workup. (5) Chronic kidney disease, stage 3: Code(s): N18.30 - Chronic kidney disease, stage 3 unspecified Status: Acute Assessment and Plan: Baseline creatinine between 1.4-1.8 Continue to monitor with diuresis (6) Hypertension: Code(s): I10 - Essential (primary) hypertension Status: Acute Assessment and Plan: BP chronic and stable Plan Partially visualized abdominal aortic aneurysm measuring 5.2 cm on 02/03/2014 Pulmonary edema Persistent lingular mass with scattered pulmonary nodules with mild mediastinal lymphadenopathy consistent with metastatic disease. Small pericardial effusion Coronary artery disease Ischemic cardiomyopathy Heart failure with reduced ejection fraction EF 25 30% February 2022 was supposed to be on Entresto ever not sure what happened. Also on Jardiance but she is back on ramipril now. Consult Cardiology. Not sure if she followed up with Cardiology. Will recheck echocardiogram COPD Hypertension Chronic left bundle-branch Elevated proBNP Acute hypoxic respiratory failure needing oxygen supplementation Pulmonary nodules decline workup in the past Hypothyroidism Gout CKD stage 3 Mild to moderate aortic stenosis Abdominal aortic aneurysm DVT prophylaxis Lovenox Subjective Date/time seen: 04/28/22 17:04 Interval history: No overnight events. Feels okay. Shortness of breath on exertion persists. Denies any chest pain. No cough Review of Systems Review of Systems: All systems reviewed & are unremarkable except as noted in HPI and below Exam Narrative: Patient is comfortable lying in bed not in acute distress HEENT: eyes are clear and none icteric LUNGS: bl crackles at lung bases ABD: not distended soft nontender Lower extremities: no edema cyanosis or clubbing SKIN: nonjaundiced Neuro: grossly intact. Alert and oriented x3 Objective Data Vital Signs Vital Signs: Vital Signs - 24 hr 04/27/22 19:59 04/27/22 20:00 04/27/22 20:00 Temperature 97.4 F L 97.4 F L Pulse Rate 94 94 Respiratory Rate 20 20 Blood Pressure 123/63 123/63 125/67 Pulse Oximetry 95 95 Oxygen Delivery Oxygen Flow Rate 04/27/22 20:00 04/27/22 20:00 04/27/22 21:04 [place]
[2022-04-28] MEDS: ACETAMINOPHEN 325 MG TABLET 650 MG PO (22:54)
[2022-04-29] VITALS (12 sets, daily range): BP systolic 75–113; BP diastolic 46–69; PULSE 69–84; RESP 14–25; TEMP 36.3–36.7; O2SAT 87–98
--- NOTE | 2022-04-29 | ECHO_ITS ---
Patient Info Name: Ayla Nolasco Age: 81 years : 1940 Gender: Female Ht: 63 in Wt: 129 lbs BSA: 1.62 m2 HR: 71 bpm BP: 112 / 60 mmHg Heart Rhythm: Sinus Rhythm Technical Quality: Fair Exam Date: 04/29/2022 8:02 AM Exam Location: [facility] Pulmonary Patient Status: Inpatient Admit Date: 04/25/2022 Staff Ordering Physician: Beck Alvarado MD [employer] Brine Tester: Elena Chacon RDCS Attending Provider: Dwayne Chandler MD Exam Type: CA echo doppler color flow Study Info Indications - CHF Complete two-dimensional, color flow and Doppler transthoracic echocardiogram is performed. Summary 1. Complete two-dimensional, color flow and Doppler transthoracic echocardiogram is performed. 2. Severe left ventricular enlargement with profoundly reduced systolic function. 3. Grade 2 diastolic noncompliance. 4. Significant biatrial dilation left greater than right. 5. Mild mitral regurgitation resulting from annular dilation. 6. Aortic valve stenosis which is moderate/low gradient because of very poor LV function. 7. Compared with echocardiogram from several months ago there have been no significant change. Left Ventricle Left ventricular chamber dimension is severely enlarged. Left ventricular systolic function is severely reduced, estimated at 15-20%. The left ventricular diastolic function is grade II diastolic dysfunction. Right Ventricle Right ventricular chamber dimension is mildly enlarged. Left Atria Left atrial chamber dimension is severely enlarged. Right Atria Right atrial chamber dimension is moderately enlarged. Aortic Valve The aortic valve is trileaflet. There is moderate aortic valve sclerosis. There is moderate aortic valve stenosis with a peak velocity of 221 cm/s, mean gradient of 9 mmHg, and aortic valve area of 0.7 cm2. Pulmonic Valve The pulmonic valve is not well visualized. Mitral Valve The mitral valve has normal leaflets. There is trace mitral valve regurgitation. Tricuspid Valve The tricuspid valve leaflets are normal. Pericardium/Pleural The pericardium appears normal. There is small circumferential pericardial effusion. Aorta The aortic root size at the sinus of Valsalva is normal. Left Ventricular Outflow Tract Name Value Normal LVOT 2D LVOT Diameter 2.0 cm LVOT Doppler LVOT Peak Gradient 1 mmHg LVOT Mean Gradient 0 mmHg LVOT VTI 8 cm LVOT VTI/AV VTI Ratio 0.2 LVOT Stroke Volume 25 ml LVOT CO 1.7 l/min LVOT CI 1.0 l/min/m2 Pulmonic Valve Name Value Normal RVOT Doppler RVOT Peak Gradient 1 mmHg PV Doppler
[2022-04-29] MEDS: LEVOTHYROXINE SODIUM 75 MCG TABLET PO (05:46)
[2022-04-29 06:13] LABS: Basophils Percent Auto 0.7 % (0.2-1.2); Eosinophils Absolute Auto 0.4 K/mm3 (0-0.3); Eosinophils Percent Auto 6.2 % (0-4.4); Hematocrit 37.1 % (37.0-47.0); Hemoglobin 11.5 g/dL (12.0-15.0); Immature Granulocyte Absolute 0.02 K/mm3 (0.00-0.031); Immature Granulocyte Percent A 0.4 % (0-0.5); Lymphocytes Percent Auto 24.9 % (18.3-44.2); Mean Corpuscular Hemoglobin 29.8 pg (26-34); Mean Corpuscular Volume 96.1 fl (80-100); Mean Platelet Volume 9.6 fl (7.4-10.4); Monocytes Absolute Auto 0.6 K/mm3 (0.1-0.6); Monocytes Percent Auto 10.5 % (2.6-8.5); Neutrophils Absolute Auto 3.2 K/mm3 (1.3-6.7); Neutrophils Percent Auto 57.3 % (45.5-73.1); Platelet Count Result 202 k/mm3 (150-375); Red Blood Count 3.86 M/mm3 (4.2-5.4); Red Cell Distribution Width 14.9 % (11.5-14.5); White Blood Count 5.6 K/mm3 (4.5-10.0)
[2022-04-29 06:42] LABS: Alanine Aminotransferase 17 U/L (6-35); Albumin Level 3.7 g/dL (3.5-5.1); Alkaline Phosphatase 62 U/L (38-126); Anion Gap 6 mmol/L (8-16); Aspartate Amino Transferase 24 U/L (14-36); Bilirubin,Total 0.7 mg/dL (0.2-1.3); Blood Urea Nitrogen 56 mg/dL (7-17); Calcium 8.3 mg/dL (8.4-10.2); Carbon Dioxide 37 mmol/L (22-30); Chloride 92 mmol/L (98-107); Estimated CRCL calculation 18 ml/min; Estimated Glomerular Filt Rate 25; Glucose 92 mg/dL (65-110); Magnesium 2.4 mg/dL (1.6-2.3); Potassium 3.9 mmol/L (3.4-5.0); Sodium 135 mmol/L (137-145)
--- NOTE | 2022-04-29 08:51 | PCOTNOTE ---
Attempted to see patient this am, however patient refused. Pt refused ADLs and activity out of bed, No, I don't want to do that either.
[2022-04-29] MEDS: ramipriL 5 MG CAPSULE 10 MG BY MOUTH (09:02)
[2022-04-29] MEDS: carvediloL 25 MG TABLET PO ×2 (09:02→21:04)
[2022-04-29] MEDS: ASPIRIN 81 MG CHEWABLE TABLET PO (09:02)
[2022-04-29] MEDS: ISOSORBIDE MONONITRATE 60 MG TAB.ER.24H PO (09:03)
[2022-04-29] MEDS: MECLIZINE HCL 12.5 MG TABLET PO ×4 (09:03→21:04)
[2022-04-29] MEDS: ENOXAPARIN 30 MG/0.3 ML SYRINGE SUB-Q (09:03)
[2022-04-29] MEDS: SPIRONOLACTONE 12.5 MG TABLET PO (09:04)
[2022-04-29] MEDS: SACCHAROMYCES BOULARDII 250 MG CAPSULE PO (12:54)
--- NOTE | 2022-04-29 13:51 | PM.CNCAR ---
Assessment and Plan Assessment and plan (1) Cardiomyopathy: Code(s): I42.9 - Cardiomyopathy, unspecified Status: Acute (2) CHF (congestive heart failure): Code(s): I50.9 - Heart failure, unspecified Status: Acute Plan This is an 81-year-old woman with severe coronary artery disease as stated in my previous notes she has total occlusion of her circumflex and right coronary arteries with no significant disease in the LAD several years ago at the time of her last catheterization. She has a very low ejection fraction and for this is on appropriate medication. She likely would feel better on Entresto but we made that recommendation several months ago and there was no way she could afford the cost of that medication. For that reason her JESSICA-inhibitor has appropriately been restarted. She is not significantly volume overloaded by physical exam and I do not believe she will feel any better with aggressive diuresis. She might improve symptomatic Razia with home oxygen if she qualifies for that. The principal reason she was admitted earlier this week appears to have been symptoms of vertigo rather than symptoms of decompensated heart failure. She also has apparent malignancy in her chest that she does not wish to have evaluated or treated and his made that clear. Her previous admission this had led her to choose DNR status obviously she is a full code at this time which is a either change in her opinion or this may not have been discussed with her during this admission. Her current cardiac regimen however should not be changed it is appropriate follow-up with me in the office is already scheduled Pako Ross MD [facility] History of Present Illness History of Present Illness Consult date/time: 04/29/22 13:51 Reason For Visit: CHF Exacerbation, Vertigo, Lung Mass Narrative: This is an 81-year-old woman with ischemic heart disease and a relatively severe ischemic cardiomyopathy was known to me for a number of years in follow-up. I am seeing her at the request of the hospitalist because of congestive heart failure. The patient has been in the hospital here since Monday night I believe or Monday of this past week. She came to the hospital primarily because of what sounds like vertiginous symptoms. She was noticing the distress of things spinning around she has not really experienced true vertigo in the past she was treated with medication for this with reasonable improvement. She has also been reporting symptoms of shortness of breath which is not new for this patient. She has a history as stated above of severe coronary disease and a low ejection fraction and for this she is on appropriate guideline directed medical therapy. Her chest x-ray and chest CT on admission and since she has been in the hospital are interpreted as showing some mild pulmonary congestion. She does not have any lower extremity edema orthopnea or PND. She is not having any significant chest pain. When I entered the room to see her series supine in bed wearing nasal cannula oxygen watching television and did not in any distress. I saw the patient most recently here at [facility] in February of last year several months ago when she was here with some shortness of breath. We did adjust her medical regimen shifting her from ramipril to Entresto because of very low ejection fraction. Unfortunately she was unable to tolerate the cost of Entresto and has been shifted back to her JESSICA-inhibitor. The remainder of her medical regimen remains unchanged. Since she has been in the hospital her blood pressure is the low-normal range at times as low was in the high 70s systolic. Review of Systems Constitutional: Constitutional: Reports fatigue and Reports lethargy Eyes: Eyes: Reports no additional eye complaints ENT: Reports system reviewed and no additional complaints, except as documented Cardiovascular: Cardiovascular: Reports no additional cardiovascu
--- NOTE | 2022-04-29 14:51 | PM.IMPN ---
Progress Note: A&P Assessment and Plan (1) Acute on chronic systolic heart failure: Code(s): I50.23 - Acute on chronic systolic (congestive) heart failure Status: Acute Assessment and Plan: Transition to oral lasix, creat is 1.8 Watch kidney function Continue 2 liters of oxygen try to wean off Daily BMP rpt BNP BNP 95715 on admission Recheck chest x-ray with persistent congestion/pulmonary edema diuresis p.r.n. with IV Lasix. with increase in cr, will hold off diuresis today, recheck in am. rehceck echo. she could not afford entresto and also jardiance back on ramipril. (2) Vertigo: Code(s): R42 - Dizziness and giddiness Status: Acute Assessment and Plan: Her vertigo has improved significantly after receiving meclizine and Zofran. She still has some positional vertigo and this is likely benign vertigo. Continue meclizine p.r.n. Brain CT shows findings of possible acute sinusitis on the left. (3) Hypoxia: Code(s): R09.02 - Hypoxemia Status: Acute Assessment and Plan: Her hypoxia is likely due to underlying CHF exacerbation and emphysema. Pt needing 2 liters of oxygen try wean off oxygen, will need walk test at discharge pt had cxr and ct chest on admission CT chest showing - 1. Persistent lingular mass, scattered pulmonary nodules, and mild mediastinal lymphadenopathy, consistent with metastatic disease. 2. Mild pulmonary edema small pleural effusions. 3. Moderate emphysema. 4.Partially visualized abdominal aortic aneurysm that measured 5.2 cm on 02/03/2014. CT abdomen and and pelvis is recommended. 5. Small pericardial effusion. (4) Lung nodule: Code(s): R91.1 - Solitary pulmonary nodule Status: Acute Assessment and Plan: Regarding the pulmonary nodules, may represent metastatic disease and she is not interested in pursuing a workup. (5) Chronic kidney disease, stage 3: Code(s): N18.30 - Chronic kidney disease, stage 3 unspecified Status: Acute Assessment and Plan: Baseline creatinine between 1.4-1.8 Continue to monitor with diuresis (6) Hypertension: Code(s): I10 - Essential (primary) hypertension Status: Acute Assessment and Plan: BP chronic and stable Plan Partially visualized abdominal aortic aneurysm measuring 5.2 cm on 02/03/2014 Pulmonary edema Persistent lingular mass with scattered pulmonary nodules with mild mediastinal lymphadenopathy consistent with metastatic disease. Small pericardial effusion Coronary artery disease Ischemic cardiomyopathy Heart failure with reduced ejection fraction EF 25 30% February 2022 was supposed to be on Entresto ever not sure what happened. Also on Jardiance but she is back on ramipril now. Consult Cardiology. Not sure if she followed up with Cardiology. Will recheck echocardiogram which is pending COPD Hypertension Chronic left bundle-branch Elevated proBNP Acute hypoxic respiratory failure needing oxygen supplementation Pulmonary nodules decline workup in the past Hypothyroidism Gout CKD stage 3 Mild to moderate aortic stenosis Abdominal aortic aneurysm DVT prophylaxis Lovenox Subjective Date/time seen: 04/29/22 14:51 Interval history: No overnight events. she feels sob. she states she was not able to afford jardiance or entresto. she feels winded when she exerts. no leg swelling. Feels okay. no cough Review of Systems Review of Systems: All systems reviewed & are unremarkable except as noted in HPI and below Exam Narrative: Patient is comfortable lying in bed not in acute distress HEENT: eyes are clear and none icteric LUNGS: bl diminshed breath sounds at lung bases ABD: not distended soft nontender Lower extremities: no edema cyanosis or clubbing SKIN: nonjaundiced Neuro: grossly intact. Alert and oriented x3 Objective Data Vital Signs Vital Signs: Vital Signs - 24 hr 04/28/22 15:59 04/28/22 17:38 04/28/22
[2022-04-29] MEDS: ACETAMINOPHEN 325 MG TABLET 650 MG PO (22:14)
[2022-04-30] VITALS (17 sets, daily range): BP systolic 105–127; BP diastolic 43–73; PULSE 70–86; RESP 16–32; TEMP 36.2–37.1; O2SAT 92–99
[2022-04-30] MEDS: LEVOTHYROXINE SODIUM 75 MCG TABLET PO (05:48)
[2022-04-30] MEDS: SACCHAROMYCES BOULARDII 250 MG CAPSULE PO (08:03)
[2022-04-30] MEDS: ENOXAPARIN 30 MG/0.3 ML SYRINGE SUB-Q (08:04)
[2022-04-30] MEDS: SPIRONOLACTONE 12.5 MG TABLET PO (08:04)
[2022-04-30] MEDS: ramipriL 5 MG CAPSULE 10 MG BY MOUTH (08:04)
[2022-04-30] MEDS: ASPIRIN 81 MG CHEWABLE TABLET PO (08:04)
[2022-04-30] MEDS: ISOSORBIDE MONONITRATE 60 MG TAB.ER.24H PO (08:04)
[2022-04-30] MEDS: carvediloL 25 MG TABLET PO ×2 (08:04→20:35)
[2022-04-30] MEDS: MECLIZINE HCL 12.5 MG TABLET PO ×4 (08:04→20:35)
[2022-04-30 09:44] LABS: Hematocrit 37.8 % (37.0-47.0); Hemoglobin 11.6 g/dL (12.0-15.0); Mean Corpuscular HGB Conc 30.7 g/dl (32-36); Mean Corpuscular Hemoglobin 30.2 pg (26-34); Mean Corpuscular Volume 98.4 fl (80-100); Mean Platelet Volume 9.9 fl (7.4-10.4); Platelet Count Result 211 k/mm3 (150-375); Red Blood Count 3.84 M/mm3 (4.2-5.4); Red Cell Distribution Width 15.1 % (11.5-14.5); White Blood Count 5.2 K/mm3 (4.5-10.0)
[2022-04-30 09:58] LABS: Alanine Aminotransferase 18 U/L (6-35); Albumin Level 3.7 g/dL (3.5-5.1); Alkaline Phosphatase 54 U/L (38-126); Anion Gap 5 mmol/L (8-16); Aspartate Amino Transferase 22 U/L (14-36); Bilirubin,Total 0.6 mg/dL (0.2-1.3); Blood Urea Nitrogen 62 mg/dL (7-17); Carbon Dioxide 35 mmol/L (22-30); Chloride 93 mmol/L (98-107); Estimated CRCL calculation 17 ml/min; Estimated Glomerular Filt Rate 24; Glucose 199 mg/dL (65-110); Magnesium 2.5 mg/dL (1.6-2.3); Potassium 4.1 mmol/L (3.4-5.0); Sodium 133 mmol/L (137-145)
--- NOTE | 2022-04-30 14:27 | PM.IMPN ---
Progress Note: A&P Assessment and Plan (1) Acute on chronic systolic heart failure: Code(s): I50.23 - Acute on chronic systolic (congestive) heart failure Status: Acute Assessment and Plan: Transition to oral lasix, creat is 1.8 Watch kidney function Continue 2 liters of oxygen try to wean off Daily BMP rpt BNP BNP 10126 on admission Recheck chest x-ray with persistent congestion/pulmonary edema diuresis p.r.n. with IV Lasix. with increase in cr, will hold off diuresis today, recheck in am. rehceck echo. she could not afford entresto and also jardiance back on ramipril. Diuresis on holdDue to worsening kidney function Echo with ejection fraction 15-20% discuss code status once do not resuscitate (2) Vertigo: Code(s): R42 - Dizziness and giddiness Status: Acute Assessment and Plan: Her vertigo has improved significantly after receiving meclizine and Zofran. She still has some positional vertigo and this is likely benign vertigo. Continue meclizine p.r.n. Brain CT shows findings of possible acute sinusitis on the left. Mildly orthostatic positive Possibly over-diuresis (3) Hypoxia: Code(s): R09.02 - Hypoxemia Status: Acute Assessment and Plan: Her hypoxia is likely due to underlying CHF exacerbation and emphysema. Pt needing 2 liters of oxygen try wean off oxygen, will need walk test at discharge pt had cxr and ct chest on admission CT chest showing - 1. Persistent lingular mass, scattered pulmonary nodules, and mild mediastinal lymphadenopathy, consistent with metastatic disease. 2. Mild pulmonary edema small pleural effusions. 3. Moderate emphysema. 4.Partially visualized abdominal aortic aneurysm that measured 5.2 cm on 02/03/2014. CT abdomen and and pelvis is recommended. 5. Small pericardial effusion. (4) Lung nodule: Code(s): R91.1 - Solitary pulmonary nodule Status: Acute Assessment and Plan: Regarding the pulmonary nodules, may represent metastatic disease and she is not interested in pursuing a workup. (5) Chronic kidney disease, stage 3: Code(s): N18.30 - Chronic kidney disease, stage 3 unspecified Status: Acute Assessment and Plan: Baseline creatinine between 1.4-1.8 Continue to monitor with diuresis (6) Hypertension: Code(s): I10 - Essential (primary) hypertension Status: Acute Assessment and Plan: BP chronic and stable Plan Partially visualized abdominal aortic aneurysm measuring 5.2 cm on 02/03/2014 Pulmonary edema Persistent lingular mass with scattered pulmonary nodules with mild mediastinal lymphadenopathy consistent with metastatic disease. Small pericardial effusion Coronary artery disease Ischemic cardiomyopathy Heart failure with reduced ejection fraction EF 25 30% February 2022 was supposed to be on Entresto ever not sure what happened. Also on Jardiance but she is back on ramipril now. Consult Cardiology. Not sure if she followed up with Cardiology. Will recheck echocardiogram which is pending COPD Hypertension Chronic left bundle-branch Elevated proBNP Acute hypoxic respiratory failure needing oxygen supplementation Pulmonary nodules decline workup in the past Hypothyroidism Gout CKD stage 3 Mild to moderate aortic stenosis Abdominal aortic aneurysm DVT prophylaxis Lovenox Subjective Date/time seen: 04/30/22 14:28 Interval history: Patient was orthostatic yesterday. Feels okay currently. Shortness of breath on exertion. Discuss code status with the patient. Noted to be full code on admission. Review of Systems Review of Systems: All systems reviewed & are unremarkable except as noted in HPI and below Exam Narrative: Patient is comfortable lying in bed not in acute distress HEENT: eyes are clear and none icteric LUNGS: bl diminshed breath sounds at lung bases ABD: not distended soft nontender Lower extremities: no edema cyanosis or c
[2022-04-30] MEDS: LOPERAMIDE HCL 2 MG CAPSULE PO (16:14)
[2022-05-01] VITALS (20 sets, daily range): BP systolic 98–129; BP diastolic 45–78; PULSE 76–90; RESP 16–21; TEMP 36.2–37.1; O2SAT 90–100
[2022-05-01] MEDS: ACETAMINOPHEN 325 MG TABLET 650 MG PO (00:44)
[2022-05-01 04:51] LABS: Basophils Percent Auto 0.7 % (0.2-1.2); Eosinophils Absolute Auto 0.4 K/mm3 (0-0.3); Eosinophils Percent Auto 7.3 % (0-4.4); Hematocrit 36.9 % (37.0-47.0); Hemoglobin 11.3 g/dL (12.0-15.0); Immature Granulocyte Absolute 0.02 K/mm3 (0.00-0.031); Immature Granulocyte Percent A 0.4 % (0-0.5); Lymphocytes Absolute Auto 1.63 K/mm3 (0.9-3.2); Lymphocytes Percent Auto 29.6 % (18.3-44.2); Mean Corpuscular HGB Conc 30.6 g/dl (32-36); Mean Corpuscular Hemoglobin 29.4 pg (26-34); Mean Corpuscular Volume 96.1 fl (80-100); Mean Platelet Volume 9.6 fl (7.4-10.4); Monocytes Absolute Auto 0.5 K/mm3 (0.1-0.6); Monocytes Percent Auto 9.8 % (2.6-8.5); Neutrophils Absolute Auto 2.9 K/mm3 (1.3-6.7); Neutrophils Percent Auto 52.2 % (45.5-73.1); Platelet Count Result 218 k/mm3 (150-375); Red Blood Count 3.84 M/mm3 (4.2-5.4); Red Cell Distribution Width 14.6 % (11.5-14.5); White Blood Count 5.5 K/mm3 (4.5-10.0)
[2022-05-01 05:02] LABS: Alanine Aminotransferase 16 U/L (6-35); Albumin Level 3.3 g/dL (3.5-5.1); Alkaline Phosphatase 54 U/L (38-126); Anion Gap 6 mmol/L (8-16); Aspartate Amino Transferase 20 U/L (14-36); Bilirubin,Total 0.5 mg/dL (0.2-1.3); Blood Urea Nitrogen 57 mg/dL (7-17); Calcium 7.9 mg/dL (8.4-10.2); Carbon Dioxide 32 mmol/L (22-30); Chloride 100 mmol/L (98-107); Estimated CRCL calculation 19 ml/min; Estimated Glomerular Filt Rate 27; Glucose 94 mg/dL (65-110); Magnesium 2.5 mg/dL (1.6-2.3); Sodium 138 mmol/L (137-145)
[2022-05-01] MEDS: LEVOTHYROXINE SODIUM 75 MCG TABLET PO (06:27)
[2022-05-01] MEDS: ramipriL 5 MG CAPSULE 10 MG BY MOUTH (08:06)
[2022-05-01] MEDS: ENOXAPARIN 30 MG/0.3 ML SYRINGE SUB-Q (08:06)
[2022-05-01] MEDS: SPIRONOLACTONE 12.5 MG TABLET PO (08:06)
[2022-05-01] MEDS: ASPIRIN 81 MG CHEWABLE TABLET PO (08:06)
[2022-05-01] MEDS: MECLIZINE HCL 12.5 MG TABLET PO ×4 (08:06→20:30)
[2022-05-01] MEDS: ISOSORBIDE MONONITRATE 60 MG TAB.ER.24H PO (08:06)
[2022-05-01] MEDS: SACCHAROMYCES BOULARDII 250 MG CAPSULE PO (08:07)
[2022-05-01] MEDS: carvediloL 25 MG TABLET PO ×2 (08:07→20:30)
--- NOTE | 2022-05-01 13:27 | PM.PNCARD ---
Progress Note: A&P Assessment and Plan (1) Coronary artery disease: Code(s): I25.10 - Atherosclerotic heart disease of [place] coronary artery without angina pectoris Status: Acute (2) CHF (congestive heart failure): Qualifiers: Heart failure type: other Qualified Code(s): I50.9 - Heart failure, unspecified Code(s): I50.9 - Heart failure, unspecified Status: Acute (3) Ischemic cardiomyopathy: Code(s): I25.5 - Ischemic cardiomyopathy Status: Acute Plan 81-year-old lady with history of heart failure with reduced ejection fraction she is on appropriate medical therapy for this at appears to be stable for discharge in my opinion. She was not really admitted to this hospital with the significant volume overload/CHF decompensation. The principal reason she came here I believe was because of concern regarding vertigo. She does have follow-up with me scheduled in the office at a short interval this appointment will be capped. I would discharge her on the same CHF regimen that she has been on as an outpatient. Long-term prognosis is obviously not good and she has appropriately chosen DNR status Pako Ross MD [facility] Subjective Date/time seen: Date of service: 05/01/22 13:27 Interval history: Follow-up visit in this 81-year-old lady with: Severely reduced left ventricular systolic function with history of heart failure. Patient was admitted to this hospital primarily with symptoms of vertigo and also was having some shortness of breath. She says today her breathing is back to her baseline with modest activity she is short of breath but this is attributed to low ejection fraction. Vertiginous symptoms seem to have resolved. Plans according to the record and the nursing staff are for discharge today. Patient is concerned about her safety getting home because of bad weather. Exam Const: General: comfortable and no acute distress Other: Elderly frail lady comfortable cooperative no distress lying supine in bed HENMT: Mouth: Yes moist mucous membranes Eyes: Sclera: sclerae normal Neck: Neck: supple and no JVD Resp: Effort & Inspection: normal respiratory effort Auscultation: clear to auscultation bilaterally Other: Breath sounds are clear no pulmonary rales are audible Cardio: Rate: regular rate Other: PMI is enlarged and laterally displaced first and second heart sounds normal soft systolic murmur does not radiate from the base GI: GI Palp: Yes Soft to palpation Auscultation: normal bowel sounds Skin: General skin exam: normal color Neuro: Other: Alert and oriented Extrem: Other: No edema at all skin turgor appears to be on the dry side Objective Data Vital Signs Vital Signs: Vital Signs - 24 hr 04/30/22 16:12 04/30/22 16:10 04/30/22 16:12 Temperature 37.1 C Pulse Rate 81 81 81 Respiratory Rate 32 H 32 H Blood Pressure 123/73 127/65 123/73 Pulse Oximetry 97 98 97 Oxygen Delivery Oxygen Flow Rate 04/30/22 16:14 04/30/22 18:32 04/30/22 20:35 Temperature Pulse Rate 84 86 Respiratory Rate 28 H Blood Pressure 117/68 Pulse Oximetry 97 Oxygen Delivery Oxygen Flow Rate 04/30/22 20:00 04/30/22 22:42 04/30/22 22:42 Temperature 36.4 C L 36.4 C L Pulse Rate 80 80 Respiratory Rate 18 18 Blood Pressure 110/43 L 110/43 L Pulse Oximetry 95 97 97 Oxygen Delivery Nasal Cannula Oxygen Flow Rate 1 04/30/22 22:43 04/30/22 22:44 05/01/22 02:14 Temperature 36.2 C L 36.7 C 36.7 C Pulse Rate 74 75 76 Respiratory Rate 20 20 21 H Blood Pressure 125/62 118/62 121/58 L Pulse Oximetry 99 99 100 Oxygen Delivery Oxygen Flow Rate 05/01/22 06:00 05/01/22 08:07 05/01/22 08:07 Temperature 36.4 C L Pulse Rate 81 84 Respiratory Rate 20 Blood Pressure 129/78 Pulse Oximetry 98 95 Oxygen Delivery Room Air Oxygen Flow Rate 05/01/22 10:07 05/01/22 10:08 05/01/22 11:41 Temperature 36.2 C
--- NOTE | 2022-05-01 15:01 | PM.IMPN ---
Progress Note: A&P Assessment and Plan (1) Acute on chronic systolic heart failure: Code(s): I50.23 - Acute on chronic systolic (congestive) heart failure Status: Acute Assessment and Plan: Transition to oral lasix, creat is 1.8 Watch kidney function Continue 2 liters of oxygen try to wean off Daily BMP rpt BNP BNP 75784 on admission Recheck chest x-ray with persistent congestion/pulmonary edema diuresis p.r.n. with IV Lasix. with increase in cr, will hold off diuresis today, recheck in am. rehceck echo. she could not afford entresto and also jardiance back on ramipril. Diuresis on holdDue to worsening kidney function Echo with ejection fraction 15-20% discuss code status once do not resuscitate (2) Vertigo: Code(s): R42 - Dizziness and giddiness Status: Acute Assessment and Plan: Her vertigo has improved significantly after receiving meclizine and Zofran. She still has some positional vertigo and this is likely benign vertigo. Continue meclizine p.r.n. Brain CT shows findings of possible acute sinusitis on the left. Mildly orthostatic positive Possibly over-diuresis Creatinine is stable today (3) Hypoxia: Code(s): R09.02 - Hypoxemia Status: Acute Assessment and Plan: Her hypoxia is likely due to underlying CHF exacerbation and emphysema. Pt needing 2 liters of oxygen try wean off oxygen, will need walk test at discharge pt had cxr and ct chest on admission CT chest showing - 1. Persistent lingular mass, scattered pulmonary nodules, and mild mediastinal lymphadenopathy, consistent with metastatic disease. 2. Mild pulmonary edema small pleural effusions. 3. Moderate emphysema. 4.Partially visualized abdominal aortic aneurysm that measured 5.2 cm on 02/03/2014. CT abdomen and and pelvis is recommended. 5. Small pericardial effusion. (4) Lung nodule: Code(s): R91.1 - Solitary pulmonary nodule Status: Acute Assessment and Plan: Regarding the pulmonary nodules, may represent metastatic disease and she is not interested in pursuing a workup. (5) Chronic kidney disease, stage 3: Code(s): N18.30 - Chronic kidney disease, stage 3 unspecified Status: Acute Assessment and Plan: Baseline creatinine between 1.4-1.8 Continue to monitor with diuresis creatinine stable (6) Hypertension: Code(s): I10 - Essential (primary) hypertension Status: Acute Assessment and Plan: BP chronic and stable Plan Partially visualized abdominal aortic aneurysm measuring 5.2 cm on 02/03/2014 Pulmonary edema Persistent lingular mass with scattered pulmonary nodules with mild mediastinal lymphadenopathy consistent with metastatic disease. Small pericardial effusion Coronary artery disease Ischemic cardiomyopathy Heart failure with reduced ejection fraction EF 25 30% February 2022 was supposed to be on Entresto ever not sure what happened. Also on Jardiance but she is back on ramipril now. Consult Cardiology. Not sure if she followed up with Cardiology. Will recheck echocardiogram which is pending COPD Hypertension Chronic left bundle-branch Elevated proBNP Acute hypoxic respiratory failure needing oxygen supplementation Pulmonary nodules decline workup in the past Hypothyroidism Gout CKD stage 3 Mild to moderate aortic stenosis Abdominal aortic aneurysm DVT prophylaxis Lovenox Home oxygen evaluation Possible home tomorrow refuses rehab placement Subjective Date/time seen: 05/01/22 15:01 Interval history: no overnight events. Denies any new complaints. Shortness of breath on exertion. Review of Systems Review of Systems: All systems reviewed & are unremarkable except as noted in HPI and below Exam Narrative: Patient is comfortable lying in bed not in acute distress HEENT: eyes are clear and none icteric LUNGS: bl diminshed breath sounds at lung bases ABD: not distended soft nontender Lower e
[2022-05-02 03:23] VITALS: BP 114/57; PULSE 78; RESP 17; TEMP 36.6; O2SAT 95
[2022-05-02] MEDS: LEVOTHYROXINE SODIUM 75 MCG TABLET PO (05:58)
[2022-05-02 06:24] LABS: Basophils Percent Auto 0.6 % (0.2-1.2); Eosinophils Absolute Auto 0.3 K/mm3 (0-0.3); Eosinophils Percent Auto 6.8 % (0-4.4); Hemoglobin 11.1 g/dL (12.0-15.0); Immature Granulocyte Absolute 0.02 K/mm3 (0.00-0.031); Immature Granulocyte Percent A 0.4 % (0-0.5); Lymphocytes Absolute Auto 1.41 K/mm3 (0.9-3.2); Lymphocytes Percent Auto 28.1 % (18.3-44.2); Mean Corpuscular HGB Conc 30.8 g/dl (32-36); Mean Corpuscular Hemoglobin 29.8 pg (26-34); Mean Corpuscular Volume 96.8 fl (80-100); Mean Platelet Volume 9.8 fl (7.4-10.4); Monocytes Absolute Auto 0.5 K/mm3 (0.1-0.6); Neutrophils Absolute Auto 2.7 K/mm3 (1.3-6.7); Neutrophils Percent Auto 54.1 % (45.5-73.1); Platelet Count Result 209 k/mm3 (150-375); Red Blood Count 3.72 M/mm3 (4.2-5.4); Red Cell Distribution Width 14.6 % (11.5-14.5)
[2022-05-02 06:27] LABS: Alanine Aminotransferase 15 U/L (6-35); Albumin Level 3.5 g/dL (3.5-5.1); Alkaline Phosphatase 58 U/L (38-126); Anion Gap 4 mmol/L (8-16); Aspartate Amino Transferase 25 U/L (14-36); Bilirubin,Total 0.6 mg/dL (0.2-1.3); Blood Urea Nitrogen 52 mg/dL (7-17); Calcium 8.3 mg/dL (8.4-10.2); Carbon Dioxide 32 mmol/L (22-30); Chloride 99 mmol/L (98-107); Estimated CRCL calculation 21 ml/min; Estimated Glomerular Filt Rate 31; Glucose 93 mg/dL (65-110); Magnesium 2.6 mg/dL (1.6-2.3); Potassium 4.3 mmol/L (3.4-5.0); Sodium 135 mmol/L (137-145)
[2022-05-02 08:00] VITALS: O2SAT 93
[2022-05-02 08:30] VITALS: BP 123/66
[2022-05-02] MEDS: ASPIRIN 81 MG CHEWABLE TABLET PO (08:30)
[2022-05-02 08:31] VITALS: PULSE 79
[2022-05-02] MEDS: SPIRONOLACTONE 12.5 MG TABLET PO (08:31)
[2022-05-02] MEDS: ISOSORBIDE MONONITRATE 60 MG TAB.ER.24H PO (08:31)
[2022-05-02] MEDS: MECLIZINE HCL 12.5 MG TABLET PO (08:31)
[2022-05-02] MEDS: ramipriL 5 MG CAPSULE 10 MG BY MOUTH (08:31)
[2022-05-02] MEDS: ENOXAPARIN 30 MG/0.3 ML SYRINGE SUB-Q (08:31)
[2022-05-02] MEDS: SACCHAROMYCES BOULARDII 250 MG CAPSULE PO (08:31)
[2022-05-02] MEDS: carvediloL 25 MG TABLET PO (08:31)
--- NOTE | 2022-05-02 10:57 | PM.DS ---
DS: Admitting Diagnosis Discharge Date 05/02/2022 Admitting Diagnosis vertigo DS: Discharge Diagnosis Discharge Diagnosis (1) Acute on chronic systolic heart failure: Code(s): I50.23 - Acute on chronic systolic (congestive) heart failure Status: Acute (2) Vertigo: Code(s): R42 - Dizziness and giddiness Status: Acute (3) Hypoxia: Code(s): R09.02 - Hypoxemia Status: Acute (4) Lung nodule: Code(s): R91.1 - Solitary pulmonary nodule Status: Acute (5) Chronic kidney disease, stage 3: Code(s): N18.30 - Chronic kidney disease, stage 3 unspecified Status: Acute (6) Hypertension: Code(s): I10 - Essential (primary) hypertension Status: Acute DS: Summary Hospital Course Hospital Course: # Acute on chronic systolic heart failure: underlying chronic kidney stage 3[place] [address]. Required oxygen supplementation initially which was later tapered off diuresed with IV Lasix however held with worsening renal function. Recheck echo with ejection fraction 15-20% which has worsened from previous EF from 02/2022. She was not able to afford Entresto and Jardiance. She is back on ramipril and Coreg. Cardiology was consulted during the hospital stay. Diuresis was held due to orthostatic hypotension and also dizziness that she presented with. Besides chest x-ray finding of congestive changes which is likely chronic due to her heart failure with reduced ejection fraction and limited physical capacity. # vertigo: Her vertigo has improved significantly after receiving meclizine and Zofran. She still has some positional vertigo and this is likely benign vertigo. Continue meclizine p.r.n. Brain CT shows findings of possible acute sinusitis on the left. Mildly orthostatic positive Possibly over-diuresis Improved with holding diuresis # acute hypoxia: Her hypoxia is likely due to underlying CHF exacerbation and emphysema. Pt needing 2 liters of oxygen On admission. pt had cxr and ct chest on admission CT chest showing -?1. Persistent lingular mass, scattered pulmonary nodules, and mild mediastinal lymphadenopathy, consistent with metastatic disease. 2. Mild pulmonary edema small pleural effusions. 3. Moderate emphysema. 4.Partially visualized abdominal aortic aneurysm that measured 5.2 cm on 02/03/2014. CT abdomen and and pelvis is recommended. 5. Small pericardial effusion. Oxygen was tapered off Walk test was performed prior to the discharge which was good did not require any oxygen at discharge # lung nodule: CT chest with persistent lingular mass, scattered pulmonary nodules and mild mediastinal lymphadenopathy Regarding the pulmonary nodules, may represent metastatic disease and she is not interested in pursuing a workup. # chronic kidney disease stage 3: Baseline creatinine between 1.4-1.8 Continue to monitor with diuresis ?creatinine stable # hypertension: BP chronic and stable #Partially visualized abdominal aortic aneurysm measuring 5.2 cm on 02/03/2014 #Pulmonary edema #Coronary artery disease #schemic cardiomyopathy # COPD # chronic left bundle branch block # hypothyroidism # gout # [id number] aortic stenosis # code status discussed with the patient during the hospital stay. Do not resuscitate status Time Spent with Patient Time attestation: Total time spent providing and/or coordinating discharge services: 40 minutes Exam Narrative: Patient is comfortable lying in bed not in acute distress HEENT: eyes are clear and none icteric LUNGS: bl diminshed breath sounds at lung bases ABD: not distended soft nontender Lower extremities: no edema cyanosis or clubbing SKIN: nonjaundiced Neuro: grossly intact. Alert and oriented x3 DS: Data Data Completed and Pending Completed studies during hospitalization: Exam Type: ? ? CA echo doppler color flow Study Info Indications ?? ? - CHF Complete two-dimensional, color f
[2022-05-02 10:59] VITALS: BP 95/94; PULSE 70; RESP 16; TEMP 36; O2SAT 94
--- NOTE | 2022-05-02 11:08 | PCPTNOTE ---
Patient refused treatment this session due to anticipated discharge. Patient reported she is getting discharge and she is worried about her son diving in the weather, and reported that is all she can think about.
== END 2022-05-02 13:16 | disposition home health service (06) | DRG 291 ==
LOC: ANHED 11:34 → ANH3MEDSUR 14:10 → ANH2MED 16:55
PROVIDERS: Family Medicine; Physician Assistant; Admitting Provider Internal Medicine; Emergency Provider Emergency Medicine; PCP Family Medicine; Visit Provider Internal Medicine
DX: I13.0 Hypertensive heart and chronic kidney disease with heart failure and stage 1 through stage 4 chronic kidney disease, or unspecified chronic kidney disease (principal); I50.23 Acute on chronic systolic (congestive) heart failure; N18.30 Chronic kidney disease, stage 3 unspecified; Z20.822 Contact with and (suspected) exposure to COVID-19; R91.1 Solitary pulmonary nodule; R09.02 Hypoxemia; I25.10 Atherosclerotic heart disease of native coronary artery without angina pectoris; I25.5 Ischemic cardiomyopathy; E03.9 Hypothyroidism, unspecified; M10.9 Gout, unspecified; I35.0 Nonrheumatic aortic (valve) stenosis; J01.90 Acute sinusitis, unspecified; H81.10 Benign paroxysmal vertigo, unspecified ear; I44.7 Left bundle-branch block, unspecified; J43.9 Emphysema, unspecified; I71.40 Abdominal aortic aneurysm, without rupture, unspecified
CPT/HCPCS: 36415; 70450; 71045; 71046; 71250; 80048; 80053; 82948; 83735; 83880; 85025; 85027; 87636; 93005; 93306; 94618; 96372; 96374; 96375; 96376; 97110; 97161; 97165; 97530; 97535; 99285; A9270; G0378; J1650; J1940; J2405